=== PATIENT | male | born 1960 | race Caucasian/White ===

== ENCOUNTER 2016-09-30 18:29 | Inpatient (IN) | payer OTHER ==
[~2016-09-30] VITALS: Ht 167.6 cm; Wt 84.1 kg
[2016-09-30] MEDS ORDERED: SODIUM CHLORIDE 0.9% 1L BAG IV* STA (18:42)
[2016-09-30] MEDS ORDERED: morphine 4 MG/ML VIAL IV STA (18:42)
[2016-09-30] MEDS ORDERED: ONDANSETRON 4 MG INJ IV STA (18:42)
[2016-09-30] MEDS ORDERED: CEFEPIME 2GM/50 ML (PMX) 50 ML IVPB STA (18:42)
[2016-09-30] MEDS ORDERED: VANCOMYCIN 1 GM (PMX) 250 ML IVPB ONE (19:00)
[2016-09-30 19:12] LABS: BASOPHIL # 0.1 10^3/ul (0.0-0.1); BASOPHILS % 0.5 % (0.0-2.0); EOSINOPHILS # 0.1 10^3/ul (0.0-0.5); EOSINOPHILS % 0.7 % (0.0-7.0); HEMATOCRIT 47.6 % (42.0-52.0); HEMOGLOBIN 15.9 g/dl (14.0-18.0); LYMPHOCYTES # 1.8 10^3/ul (0.8-2.9); LYMPHOCYTES % 15.6 % (15.0-51.0); MEAN CORPUSCULAR HEMOGLOBIN 29.5 pg (29.0-33.0); MEAN CORPUSCULAR HGB CONC 33.4 g/dl (32.0-37.0); MEAN CORPUSCULAR VOLUME 88.2 fl (82.0-101.0); MONOCYTE # 0.7 10^3/ul (0.3-0.9); MONOCYTES % 5.6 % (0.0-11.0); NEUTROPHIL # 9.2 10^3/ul (1.6-7.5); NEUTROPHILS % 77.6 % (39.0-77.0); PLATELET COUNT 363 10^3/UL (140-440); RED CELL DISTRIBUTION WIDTH 13.6 % (11.5-14.5); UNCORRECTED WBC 11.8 10^3/ul (4.8-10.8); WHITE BLOOD COUNT 11.8 10^3/ul (4.8-10.8)
[2016-09-30 19:19] LABS: ALBUMIN 4.1 g/dl (3.3-4.9); CHLORIDE 104 mmol/L (97-110); SODIUM 146 mmol/L (135-144)
[2016-09-30 19:20] LABS: POTASSIUM 4.4 mmol/L (3.5-5.1)
[2016-09-30 19:22] LABS: ALANINE AMINOTRANSFERASE 52 IU/L (13-69); ALKALINE PHOSPHATASE 100 IU/L (42-121); ANION GAP 18 (8-16); ASPARTATE AMINO TRANSFERASE 101 IU/L (15-46); BILIRUBIN,INDIRECT 0.7 mg/dl (0-1.1); BILIRUBIN,TOTAL 0.7 mg/dl (0.2-1.3); BLOOD UREA NITROGEN 22 mg/dl (7-20); CALCIUM 9.3 mg/dl (8.4-10.2); CARBON DIOXIDE 28 mmol/L (21-31); CREATININE 1.12 mg/dl (0.61-1.24); GLUCOSE 112 mg/dl (70-220); TOTAL PROTEIN 7.5 g/dl (6.1-8.1)
[2016-09-30 19:24] LABS: PARTIAL THROMBOPLASTIN TIME 30.8 Sec (25.0-35.0)
[2016-09-30 19:29] LABS: CONDITION 1
[2016-09-30 19:32] LABS: INR 1.1; PROTIME 14.2 Sec (12.2-14.2); PT RATIO 1.1
--- NOTE | 2016-09-30 19:38 | RADRPT ---
PROCEDURE: CT Head without. CLINICAL INDICATION: Headache, possible sepsis. TECHNIQUE: The study was performed utilizing a multi-slice, multidetector CT scanner. Direct spira l 1 mm axial sections were obtained through the head without the use of intravenous contrast materia l. Coronal and sagittal reformations were obtained. The images were reviewed on a PACS workstation. RADIATION DOSE: CTDIvol: 44.9 mGyDLP: 720.2 mGy-cm COMPARISON: No prior studies are available for comparison. FINDINGS: There is no intracranial hemorrhage, extra-axial fluid collection, mass lesion, midline shift or hyd rocephalus. The ventricles, sulci and cisterns are within normal limits. The white matter is unrem arkable. The pemberton-white matter differentiation is preserved. The basal cisterns are patent. There is partial empty sella, normal variant. The midline structures are intact. The orbits, calvarium and extracranial soft tissues are normal in appearance. The visualized paranasal sinuses, mastoid ai r cells and middle ear cavities are normally aerated. IMPRESSION: 1. No acute intracranial abnormality. No intracranial hemorrhage, extra-axial fluid collection, ma ss lesion or hydrocephalous. RPTAT: HGAS .Sony Monroy MD, Date Time Electronically viewed and signed by .Sony Monroy MD, on 09/30/2016 19:37 .S/
--- NOTE | 2016-09-30 19:39 | RADRPT ---
PROCEDURE: CT Abdomen and Pelvis without contrast. CLINICAL INDICATION: Abdominal pain TECHNIQUE: CT of the abdomen and pelvis was performed on a multi-detector scanner without IV contr ast. Coronal and sagittal images were reformatted from the axial data set. One or more of the foll owing dose reduction techniques were used: automated exposure control, adjustment of the mA and/or kV according to patient size, use of iterative reconstruction technique. CTDI = 21.98 mGy. DLP = 12 40.4 mGy-cm. COMPARISON: None. FINDINGS: CT abdomen: The lung bases are clear. The heart size is normal, without pericardial effusion. Liver, gallbladd er, biliary tree, pancreas, spleen, adrenal glands and kidneys are unremarkable. No urolithiasis or obstructive uropathy is identified. The stomach is grossly unremarkable. The aorta is of normal caliber. Aortic vascular calcifications are present. There is no retroperit henderson lymphadenopathy. The cullen hepatis region is clear. Fat-containing umbilical hernia is ident ified, without incarceration. CT pelvis: Moderate retained fecal material is suggestive of constipation. There is no bowel obstruction, free intraperitoneal air or abscess. The appendix is well visualized and normal. No diverticulosis, di verticulitis or colitis is identified. Urinary bladder is unremarkable. No pelvic mass, free fluid or lymphadenopathy is identified. The surrounding osseous structures are remarkable for degenerative spondylosis of the spine. No ost eolytic or osteoblastic lesion is detected. IMPRESSION: 1. Moderate retained fecal material is suggestive of constipation. 2. Aortoiliac atherosclerotic calcifications are present. 3. Fat-containing umbilical hernia is noted, without incarceration. 4. No mass, lymphadenopathy, or focal acute inflammatory process is identified. RPTAT: QQ .Easton Kennedy MD, MD Date Time Electronically viewed and signed by .Easton Kennedy MD, MD on 09/30/2016 19:38 .R/
--- NOTE | 2016-09-30 19:39 | RADRPT ---
PROCEDURE: XR Chest. CLINICAL INDICATION: Sepsis TECHNIQUE: Single frontal chest x-ray. COMPARISON: None. FINDINGS: No acute infiltrate, pleural effusion or pneumothorax is identified. Cardiomediastinal silhouette i s within normal limits. The osseous structures are unremarkable. IMPRESSION: 1. Unremarkable chest x-ray. RPTAT: QQ .Easton Kennedy MD, MD Date Time Electronically viewed and signed by .Easton Kennedy MD, on 09/30/2016 19:39 .R/
[2016-09-30 19:43] LABS: TROPONIN-I < 0.012 ng/ml (0.00-0.12)
[2016-09-30 19:53] LABS: CREATINE KINASE 4413 IU/L (23-200)
--- NOTE | 2016-09-30 20:15 | ERA ---
ER Documentation Chief Complaint Date/Time DATE: 09/30/16 TIME: 20:12 Chief Complaint BLE pain, hx S1&L5 subluxation, hx laminectomy in 1990 HPI Patient is a 55-year-old male with hypertension who presents with lower extremity pain. He was brought in by ambulance. [facility] in a [facility] facility but he was refusing medicines and left AGAINST MEDICAL ADVICE. He is now living in a trailer by himself. The paramedics said the trailer was in bad condition and he was unable to ambulate in the trailer and was laying on the floor. The patient says that he fell out of bed last night and could not get up. He says "my legs have not been working for a while and I cannot walk". He said that he did have a [facility]. Upon review of old medical records the patient one previous visit to the ER in 2011. Review of the emergency department information exchange shows no visits to other local emergency departments. ROS All systems reviewed and are negative except as per history of present illness. Allergies Allergies: Coded Allergies: Codeine (Verified Allergy, NAUSEA,VOMITING, 10/23/11) PMhx/Soc History of Surgery: Yes (HEMILAMINECTOMY 1990) Anesthesia Reaction: No Hx Neurological Disorder: No Hx Respiratory Disorders: No Hx Cardiac Disorders: Yes (CHF,CT,HTN) Hx Psychiatric Problems: No Hx Miscellaneous Medical Probl: No Hx Alcohol Use: No Hx Substance Use: No Hx Tobacco Use: Yes (1 CIGARETTE A DAY) Smoking Status: Former smoker FmHx Family History: No diabetes Physical Exam Vitals Vital Signs Date Time Temp Pulse Resp B/P Pulse Ox O2 Delivery O2 Flow Rate FiO2 09/30/16 18:34 98.8 78 18 109/59 95 Physical Exam Const: Moderate distress Head: Atraumatic Eyes: Normal Conjunctiva ENT: Normal External Ears, Nose and Mouth. Neck: Full range of motion..~ No meningismus. Resp: Clear to auscultation bilaterally Cardio: Regular rate and rhythm, no murmurs Abd: Soft, non tender, non distended. Normal bowel sounds Skin: Erythema to the right abdomen with bruising possibly fall related an abrasion versus cellulitis Back: No midline or flank tenderness Ext: No cyanosis, or edema Neur: Awake and alert, weakness and spasm of the lower extremities bilaterally Psych: Normal Mood and Affect Result Diagram: 1/1/17 1900 09/30/16 1900 Results 24 hrs Laboratory Tests Test 09/30/16 19:00 Activated Partial Thromboplast Time 30.8Sec Alanine Aminotransferase (ALT/SGPT) 52IU/L Albumin 4.1g/dl Albumin/Globulin Ratio 1.20 Alkaline Phosphatase 100IU/L Anion Gap 18 Aspartate Amino Transf (AST/SGOT) 101IU/L Basophils # 0.110^3/ul Basophils % 0.5% Blood Urea Nitrogen 22mg/dl Calcium Level 9.3mg/dl Carbon Dioxide Level 28mmol/L Chloride Level 104mmol/L Creatine Kinase 4413IU/L Creatine Kinase Index 0.7 Creatinine 1.12mg/dl Creatinine Kinase MB (Mass) 28.90ng/ml Direct Bilirubin 0.00mg/dl Eosinophils # 0.110^3/ul Eosinophils % 0.7% Globulin 3.40g/dl Glucose Level 112mg/dl Hematocrit 47.6% Hemoglobin 15.9g/dl INR International Normalized Ratio 1.10 Indirect Bilirubin 0.7mg/dl Lactic Acid Level 2.0mmol/L Lymphocytes # 1.810^3/ul Lymphocytes % 15.6% Mean Corpuscular Hemoglobin 29.5pg Mean Corpuscular Hemoglobin Concent 33.4g/dl Mean Corpuscular Volume 88.2fl Mean Platelet Volume 9.0fl Monocytes # 0.710^3/ul Monocytes % 5.6% Neutrophils # 9.210^3/ul Neutrophils % 77.6% Nucleated Red Blood Cells # 0.010^3/ul Nucleated Red Blood Cells % 0.0/100WBC Platelet Count 80562^3/UL Potassium Level 4.4mmol/L Prothrombin Time 14.2Sec Prothrombin Time Ratio 1.1 Red Blood Count 5.4010^6/ul Red Cell Distribution Width 13.6% Sodium Level 146mmol/L Total Bilirubin 0.7mg/dl Total Protein 7.5g/dl Troponin I < 0.012ng/ml White Blood Count 11.810^3/ul Current Medications Medications (Trade) Dose Ordered Sig/Oli Route PRN Reason Start Time Stop Time Status Last Admin Dose Admin Sodium Chloride 2610 ml 2,610 ml BOLUS OVER 2 HOURS STAT IV* 09/30/16 18:42 09/30/16 18:44 DC 09/30/16 19:15 Cefepime HCl 50 ml @ 100 mls/hr ONCE STAT IVPB 09/30/16 18:42 09/30/16 19:11 DC 09/30/16 19:45 Vancomycin HCl (Vancocin) 250 ml @ 125 mls/hr ONCE ONCE IVPB 09/30/16 19:00 09/30/16 20:59 Morphine Sulfate (morphine) 4 mg ONCE STAT IV 09/30/16 18:42 09/30/16 18:44 DC 09/30/16 19:12 Ondansetron HCl (Zofran Inj) 4 mg ONCE STAT IV 09/30/16 18:42 09/30/16 18:44 DC 09/30/16 19:12 Ondansetron HCl (Zofran Inj) 4 mg BRIDGE ORDER PRN IV NAUSEA AND/OR VOMITING 09/30/16 20:30 10/01/16 20:29 Acetaminophen (Tylenol Tab) 650 mg ER BRIDGE PRN PO MILD PAIN/FEVER 09/30/16 20:30 10/01/16 20:29 Lorazepam (Ativan) 1 mg ONCE ONCE IV 09/30/16 20:30 09/30/16 20:31 Procedures/MDM Chest x-ray negative per radiology. CT brain negative per radiology. CT abdomen and pelvis negative for surgical process per radiology. Admit MDM: Patient's infectious symptoms have not stabilized and the patient is at risk of rapid decompensation. The patient will be admitted for careful hydration, antibiotic therapy, and infectious source control. Severe Sepsis criteria: Infectious source: Cellulitis End organ damage indicated by: Lactate greater than 2 Sepsis Management: Time of recognition of sepsis: 19:00 Within 3 hours of recognition: Blood cultures x 2 before broad-spectrum antibiotics: Yes 30 ml/kg NS bolus Completed Initial lactate 2.0 Repeat lactate pending Time of recognition of septic shock: No septic shock Septic Shock Assessment: Any lactic acid > 4.0 No Persistent hypotension (SBP < 90 or 40 mmHg drop, MAP < 65) despite 30 mL/kg IV fluid bolus No Volume Re-assessment for Septic Shock (post 30 ml/kg bolus): No septic shock at this time Persistent Hypotension Treatment: Comfort care No Central line Not Required Vasopressor started Not required I considered further perfusion assessment with CVP measurement, SCVO2, bedside ultrasound volume assessment, passive leg raise, trial of further fluid bolus. And proceeded with 30 ml/kg fluid bolus of NSS, broad spectrum antibiotics, and admission. The patient was also found to have rhabdomyolysis with a CK of greater than 4000. The patient will be rehydrated with fluid boluses. The patient will be admitted to medical surgical bed. The rhabdomyolysis is most likely from prolonged exposure to laying on the ground and muscle breakdown. Accepting Care Team Current data and ongoing care discussed. Admitting Physician: Dr. Raphael as the patient has [employer] IPA Pl[employer] Fabricator(s): None Outstanding Data: Culture results and repeat lactic acid Critical Care: Critical care time 35 minutes excluding all billable procedures Emergent fluid management while maintaining close respiratory support. Provision of immediate and broad-spectrum antibiotic therapy. Simultaneous assessment for possible sources in order to direct targeted therapy. Consideration for invasive and chemical support to prevent cardiopulmonary collapse. Departure Diagnosis: Primary Impression: Rhabdomyolysis Qualified Code: M62.82 - Non-traumatic rhabdomyolysis Additional Impressions: Ambulatory dysfunction Severe sepsis Cellulitis Qualified Code: L03.311 - Cellulitis of abdominal wall Condition: BETSY Tse MD Sep 30, 2016 20:15
[2016-09-30] MEDS ORDERED: LORAZEPAM 2 MG INJ IV ONE (20:30)
[2016-09-30] MEDS ORDERED: ACETAMINOPHEN 325 MG TAB PO PRN (20:30)
[2016-09-30] MEDS ORDERED: ONDANSETRON 4 MG INJ IV PRN ×2 (20:30→22:00)
[2016-09-30 21:00] VITALS: TEMP 98.8
--- NOTE | 2016-09-30 21:48 | HP ---
Date/Time of Note Date/Time of Note DATE: 09/30/16 TIME: 21:39 Assessment/Plan VTE Prophylaxis VTE Prophylaxis Intervention: LMWH Assessment/Plan Assessment/Plan 1. Acute rhabdomyolysis 2. s/p fall 3. HTN 4. CAD + Prev MT 5. Chronic back pain 6. Hypernatremia PLAN: admit / aggressive IV hydration / serial lab monitoring ACS r/o /2D echo/ aspirin/ lipid profile pain control/ antiemetics/ antipyretics/ supportive care Prophylaxis: Lovenox / pepcid Further evaluation and treatment will be based on clinical course Full discussion with care team done. All questions Answered Please also see orders. Total time spent on this evaluation >35mins HPI/ROS Admit Date/Time Admit Date/Time 09/30/15 Hx of Present Illness PRESENTING COMPLAINT: can't walk, Ja LE pain HISTORY OF PRESENTING COMPLAINT: 55 yo M BIBA, with a hx of HTN. He was recently in a prison facility but he was refusing medicines and left AGAINST MEDICAL ADVICE. He is now living in a trailer by himself. The paramedics said the trailer was in bad condition and he was unable to ambulate in the trailer and was laying on the floor. The patient says that he fell out of bed last night and could not get up. He says "my legs have not been working for a while and I cannot walk". ROS Constitutional: fatigue, No chills, No febrile Eyes: no complaints ENT: no complaints Respiratory: no complaints Cardiovascular: no complaints Gastrointestinal: no complaints Musculoskeletal: back pain, bone/joint pain, other (fall) Neurologic: No confusion, No dizziness, No focal-weakness, No headache, No seizure, No syncope PMH/Family/Social Past Medical History * S1 & L5 subluxation and laminectomy in 1990 * CHF * CAD s/p MT * HTN Family History Significant Family History: hypertension Social History Alcohol Use: occasionally Smoking Status: Light tobacco smoker Drug Use: none Exam/Review of Systems Vital Signs Vitals Vital Signs Date Time Temp Pulse Resp B/P Pulse Ox O2 Delivery O2 Flow Rate FiO2 09/30/16 21:00 98.8 79 18 103/66 95 Room Air Labs Result Diagram: 09/30/16 1900 09/30/16 190 Procedures Procedures Laboratory Tests Test 09/30/16 19:00 Activated Partial Thromboplast Time 30.8Sec Alanine Aminotransferase (ALT/SGPT) 52IU/L Albumin 4.1g/dl Albumin/Globulin Ratio 1.20 Alkaline Phosphatase 100IU/L Anion Gap 18 Aspartate Amino Transf (AST/SGOT) 101IU/L Basophils # 0.110^3/ul Basophils % 0.5% Blood Urea Nitrogen 22mg/dl Calcium Level 9.3mg/dl Carbon Dioxide Level 28mmol/L Chloride Level 104mmol/L Creatine Kinase 4413IU/L Creatine Kinase Index 0.7 Creatinine 1.12mg/dl Creatinine Kinase MB (Mass) 28.90ng/ml Direct Bilirubin 0.00mg/dl Eosinophils # 0.110^3/ul Eosinophils % 0.7% Globulin 3.40g/dl Glucose Level 112mg/dl Hematocrit 47.6% Hemoglobin 15.9g/dl INR International Normalized Ratio 1.10 Indirect Bilirubin 0.7mg/dl Lactic Acid Level 2.0mmol/L Lymphocytes # 1.810^3/ul Lymphocytes % 15.6% Mean Corpuscular Hemoglobin 29.5pg Mean Corpuscular Hemoglobin Concent 33.4g/dl Mean Corpuscular Volume 88.2fl Mean Platelet Volume 9.0fl Monocytes # 0.710^3/ul Monocytes % 5.6% Neutrophils # 9.210^3/ul Neutrophils % 77.6% Nucleated Red Blood Cells # 0.010^3/ul Nucleated Red Blood Cells % 0.0/100WBC Platelet Count 12853^3/UL Potassium Level 4.4mmol/L Prothrombin Time 14.2Sec Prothrombin Time Ratio 1.1 Red Blood Count 5.4010^6/ul Red Cell Distribution Width 13.6% Sodium Level 146mmol/L Total Bilirubin 0.7mg/dl Total Protein 7.5g/dl Troponin I < 0.012ng/ml White Blood Count 11.810^3/ul ER INTERVENTIONS Medications (Trade) Dose Ordered Sig/Oli Route PRN Reason Start Time Stop Time Status Last Admin Dose Admin Sodium Chloride 2610 ml 2,610 ml BOLUS OVER 2 HOURS STAT IV* 09/30/16 18:42 09/30/16 18:44 DC 09/30/16 19:15 2,610 ML Cefepime HCl 50 ml @ 100 mls/hr ONCE STAT IVPB 09/30/16 18:42 09/30/16 19:11 DC 09/30/16 19:45 100 MLS/HR Vancomycin HCl (Vancocin) 250 ml @ 125 mls/hr ONCE ONCE IVPB 09/30/16 19:00 09/30/16 20:59 DC 09/30/16 20:18 125 MLS/HR Morphine Sulfate (morphine) 4 mg ONCE STAT IV 09/30/16 18:42 09/30/16 18:44 DC 09/30/16 19:12 4 MG Ondansetron HCl (Zofran Inj) 4 mg ONCE STAT IV 09/30/16 18:42 09/30/16 18:44 DC 09/30/16 19:12 4 MG Ondansetron HCl (Zofran Inj) 4 mg BRIDGE ORDER PRN IV NAUSEA AND/OR VOMITING 09/30/16 20:30 10/01/16 20:29 Acetaminophen (Tylenol Tab) 650 mg ER BRIDGE PRN PO MILD PAIN/FEVER 09/30/16 20:30 10/01/16 20:29 Lorazepam (Ativan) 1 mg ONCE ONCE IV 09/30/16 20:30 09/30/16 20:31 DC 09/30/16 20:12 1 MG PROCEDURE: CT Abdomen and Pelvis without contrast. CLINICAL INDICATION: Abdominal pain TECHNIQUE: CT of the abdomen and pelvis was performed on a multi-detector scanner without IV contrast. Coronal and sagittal images were reformatted from the axial data set. One or more of the following dose reduction techniques were used: automated exposure control, adjustment of the mA and/or kV according to patient size, use of iterative reconstruction technique. CTDI = 21.98 mGy. DLP = 1240.4 mGy-cm. COMPARISON: None. FINDINGS: CT abdomen: The lung bases are clear. The heart size is normal, without pericardial effusion. Liver, gallbladder, biliary tree, pancreas, spleen, adrenal glands and kidneys are unremarkable. No urolithiasis or obstructive uropathy is identified. The stomach is grossly unremarkable. The aorta is of normal caliber. Aortic vascular calcifications are present. There is no retroperitoneal lymphadenopathy. The cullen hepatis region is clear. Fat-containing umbilical hernia is identified, without incarceration. CT pelvis: Moderate retained fecal material is suggestive of constipation. There is no bowel obstruction, free intraperitoneal air or abscess. The appendix is well visualized and normal. No diverticulosis, diverticulitis or colitis is identified. Urinary bladder is unremarkable. No pelvic mass, free fluid or lymphadenopathy is identified. The surrounding osseous structures are remarkable for degenerative spondylosis of the spine. No osteolytic or osteoblastic lesion is detected. IMPRESSION: 1. Moderate retained fecal material is suggestive of constipation. 2. Aortoiliac atherosclerotic calcifications are present. 3. Fat-containing umbilical hernia is noted, without incarceration. 4. No mass, lymphadenopathy, or focal acute inflammatory process is identified. RPTAT: QQ .Easton Kennedy MD MD Date Time Electronically viewed and signed by .Easton Kennedy MD, MD on 09/30/2016 19: 38 PROCEDURE: CT Head without. CLINICAL INDICATION: Headache, possible sepsis. TECHNIQUE: The study was performed utilizing a multi-slice, multidetector CT scanner. Direct spiral 1 mm axial sections were obtained through the head without the use of intravenous contrast material. Coronal and sagittal reformations were obtained. The images were reviewed on a PACS workstation. RADIATION DOSE: CTDIvol: 44.9 mGy DLP: 720.2 mGy-cm COMPARISON: No prior studies are available for comparison. FINDINGS: There is no intracranial hemorrhage, extra-axial fluid collection, mass lesion, midline shift or hydrocephalus. The ventricles, sulci and cisterns are within normal limits. The white matter is unremarkable. The pemberton-white matter differentiation is preserved. The basal cisterns are patent. There is partial empty sella, normal variant. The midline structures are intact. The orbits, calvarium and extracranial soft tissues are normal in appearance. The visualized paranasal sinuses, mastoid air cells and middle ear cavities are normally aerated. IMPRESSION: 1. No acute intracranial abnormality. No intracranial hemorrhage, extra-axial fluid collection, mass lesion or hydrocephalous. RPTAT: HGAS .Sony Monroy MD, MD Date Time Electronically viewed and signed by .Sony Monroy MD, on 09/30/2016 19: 37 .S/ PROCEDURE: XR Chest. CLINICAL INDICATION: Sepsis TECHNIQUE: Single frontal chest x-ray. COMPARISON: None. FINDINGS: No acute infiltrate, pleural effusion or pneumothorax is identified. Cardiomediastinal silhouette is within normal limits. The osseous structures are unremarkable. IMPRESSION: 1. Unremarkable chest x-ray. RPTAT: QQ .Easton Kennedy MD, MD Date Time Electronically viewed and signed by .Easton Kennedy MD, MD on 09/30/2016 19: 39 I reviewed EKG Rate: Within normal limits Rhythm: sinus Note: No ST elevation or depressions noted concerning for acute ischemic event. MICHELE BASSETT Sep 30, 2016 21:48
[2016-09-30] MEDS ORDERED: BISACODYL (EC) 5 MG TAB PO ONE (22:00)
[2016-09-30 22:10] VITALS: BP 112/60; PULSE 93; RESP 18
[2016-09-30] MEDS: HYDROCODONE/APAP (5/325) TAB PO PRN (23:22)
[2016-09-30] MEDS: SOD CHLORIDE 0.45% 1,000 ML IV SCH (23:51)
[2016-10-01 00:26] LABS: CREATINE KINASE 3020 IU/L (23-200); TROPONIN-I < 0.012 ng/ml (0.00-0.12)
[2016-10-01] MEDS: SOD CHLORIDE 0.45% 1,000 ML IV SCH ×4 (04:40→21:15)
[2016-10-01 06:20] LABS: ALBUMIN 3.1 g/dl (3.3-4.9)
[2016-10-01 06:21] LABS: POTASSIUM 4.3 mmol/L (3.5-5.1)
[2016-10-01 06:23] LABS: ALBUMIN/GLOBULIN RATIO 1.06; BILIRUBIN,INDIRECT 0.4 mg/dl (0-1.1); BILIRUBIN,TOTAL 0.4 mg/dl (0.2-1.3); CREATININE 1.14 mg/dl (0.61-1.24)
[2016-10-01 06:24] LABS: CALCIUM 8.2 mg/dl (8.4-10.2); CHOL/HDL RATIO 5.2 RATIO
[2016-10-01 06:54] LABS: THYROID STIMULATING HORMONE 0.907 MIU/L (0.465-4.680)
[2016-10-01 07:20] LABS: CREATINE KINASE 2645 IU/L (23-200)
[2016-10-01 07:27] LABS: TROPONIN-I < 0.012 ng/ml (0.00-0.12)
[2016-10-01 07:42] VITALS: BP 165/75; RESP 18
[2016-10-01] MEDS: FAMOTIDINE 20 MG TAB PO SCH ×2 (08:59→21:07)
[2016-10-01 10:24] VITALS: BP 95/54; PULSE 87; RESP 18
[2016-10-01] MEDS ORDERED: ACETAMINOPHEN 325 MG TAB ONE (11:03)
[2016-10-01] MEDS: ACETAMINOPHEN 325 MG TAB PO PRN ×2 (11:06→18:12)
--- NOTE | 2016-10-01 12:18 | PN ---
Date/Time of Note Date/Time of Note DATE: 10/01/16 TIME: 12:15 Assessment/Plan VTE Prophylaxis VTE Prophylaxis Intervention: heparin Lines/Catheters IV Catheter Type (from Nrsg): Peripheral IV Urinary Cath still in place: No Assessment/Plan Assessment/Plan 1. Acute rhabdomyolysis 2. s/p fall 3. HTN 4. CAD + Prev MT 5. Chronic back pain 6. Hypernatremia PLAN: Cont aggressive IV hydration / serial lab monitoring ACS r/o /2D echo/ aspirin/ lipid profile pain control/ antiemetics/ antipyretics/ supportive care Prophylaxis: Lovenox / pepcid Subjective 24 Hr Interval Summary Free Text/Dictation c/o generalized body pain Exam/Review of Systems Vital Signs Vitals Vital Signs Date Time Temp Pulse Resp B/P Pulse Ox O2 Delivery O2 Flow Rate FiO2 10/01/16 10:24 87 18 95/54 10/01/16 07:42 98.8 95 09/30/16 21:00 Room Air Intake and Output 09/30/16 09/30/16 10/01/16 15:00 23:00 07:00 Intake Total 250 ml 1600 ml Balance 250 ml 1600 ml Exam Constitutional: alert, oriented, well developed Head: atraumatic, normocephalic Respiratory: clear to auscultation, normal air movement Cardiovascular: nl pulses, regular rate and rhythm Gastrointestinal: soft Extremities: normal pulses Results Result Diagram: 09/30/16 1900 10/01/16 0428 Results 24 hrs Laboratory Tests Test 09/30/16 19:00 09/30/16 21:35 09/30/16 23:43 10/01/16 04:28 Activated Partial Thromboplast Time 30.8 Alanine Aminotransferase (ALT/SGPT) 52 51 Albumin 4.1 3.1 #L Albumin/Globulin Ratio 1.20 1.06 Alkaline Phosphatase 100 77 Anion Gap 18 H 15 Aspartate Amino Transf (AST/SGOT) 101 H 84 H Basophils # 0.1 Basophils % 0.5 Blood Urea Nitrogen 22 H 24 H Calcium Level 9.3 8.2 L Carbon Dioxide Level 28 21 Chloride Level 104 109 Creatine Kinase 4413 H 3020 H 2645 H Creatine Kinase Index 0.7 0.6 0.5 Creatinine 1.12 1.14 Creatinine Kinase MB (Mass) 28.90 H 16.90 H 13.00 H Direct Bilirubin 0.00 0.00 Eosinophils # 0.1 Eosinophils % 0.7 Globulin 3.40 H 2.90 Glucose Level 112 86 Hematocrit 47.6 Hemoglobin 15.9 INR International Normalized Ratio 1.10 Indirect Bilirubin 0.7 0.4 Lactic Acid Level 2.0 1.4 1.1 Lymphocytes # 1.8 Lymphocytes % 15.6 Mean Corpuscular Hemoglobin 29.5 Mean Corpuscular Hemoglobin Concent 33.4 Mean Corpuscular Volume 88.2 Mean Platelet Volume 9.0 Monocytes # 0.7 Monocytes % 5.6 Neutrophils # 9.2 H Neutrophils % 77.6 H Nucleated Red Blood Cells # 0.0 Nucleated Red Blood Cells % 0.0 Platelet Count 363 Potassium Level 4.4 4.3 Prothrombin Time 14.2 Prothrombin Time Ratio 1.1 Red Blood Count 5.40 Red Cell Distribution Width 13.6 Sodium Level 146 H 141 Total Bilirubin 0.7 0.4 Total Protein 7.5 6.0 #L Troponin I < 0.012 < 0.012 < 0.012 White Blood Count 11.8 H Cholesterol Level 131 Cholesterol/HDL Ratio 5.2 HDL Cholesterol 25 L LDL Cholesterol, Calculated 84 Magnesium Level 2.0 Thyroid Stimulating Hormone (TSH) 0.907 Triglycerides Level 111 Medications Medications Current Medications Sodium Chloride (1/2 NS) 1,000 ml @ 150 mls/hr Q6H40M IV Last administered on 10/01/16 06:53; Admin Dose 150 MLS/HR; Start 09/30/16 at 22:00 Acetaminophen/ Hydrocodone Bitart ([place] (5/325)) 1 tab Q6H PRN PO pain Last administered on 09/30/16 23:22; Admin Dose 1 TAB; Start 09/30/16 at 22:00 Senna/Docusate Sodium (Senokot-S) 2 tab QHS PO ; Start 10/01/16 at 21:00 Famotidine (Pepcid) 20 mg BID PO Last administered on 10/01/16 08:59; Admin Dose 20 MG; Start 10/01/16 at 09:00 Ondansetron HCl (Zofran Inj) 4 mg Q6H PRN IV NAUSEA AND/OR VOMITING; Start 09/30 at 22:00 Influenza Virus Vaccine (Fluzone) 0.5 ml ONCE ONCE IM* ; Start 10/02/16 at 09:00 ; Stop 10/02/16 at 09:01 Acetaminophen (Tylenol Tab) 650 mg Q6H PRN PO PAIN AND OR ELEVATED TEMP Last administered on 10/01/16t 11:06; Admin Dose 650 MG; Start 10/01/16 at 11:00 SHINE GERMAIN MD Oct 01, 2016 12:18
[2016-10-01] MEDS: HYDROCODONE/APAP (5/325) TAB PO PRN ×2 (13:05→19:33)
[2016-10-01 13:45] LABS: ADD UMIC NO; URINE BILIRUBIN (Dip) NEGATIVE (NEGATIVE); URINE BLOOD (Dip) NEGATIVE (NEGATIVE); URINE COLOR LT. YELLOW (YELLOW); URINE GLUCOSE (Dip) NEGATIVE (NEGATIVE); URINE KETONES (Dip) NEGATIVE (NEGATIVE); URINE LEUKOCYTE ESTERASE (Dip) NEGATIVE (NEGATIVE); URINE NITRITE (Dip) NEGATIVE (NEGATIVE); URINE TOTAL PROTEIN (Dip) NEGATIVE (NEGATIVE); URINE UROBILINOGEN (Dip) 0.2 E.U./dL (0.1-1.0)
[2016-10-01 15:56] LABS: BARBITURATES NEGATIVE (NEGATIVE); BENZODIAZEPINES NEGATIVE (NEGATIVE); CANNABINOIDS NEGATIVE (NEGATIVE); COCAINE NEGATIVE (NEGATIVE); OPIATES POSITIVE (NEGATIVE)
[2016-10-01 20:00] VITALS: BP 116/64; PULSE 75; RESP 20
[2016-10-01 20:31] VITALS: BP 116/64; RESP 20
[2016-10-01] MEDS: SENNA/DOCUSATE NA (8.6MG/50MG) TAB PO SCH (21:07)
[2016-10-01] MEDS: HEPARIN 5,000 UNIT/0.5 ML SYG SC SCH (21:12)
--- NOTE | 2016-10-01 21:53 | RADRPT ---
Echocardiogram Report Patient Name: LUTHER SAM Gender: Male Date: 1960 Study Date: 01-Oct-2016 Child Development Specialist: Lupillo Bustos RDCS Location: 420 Ref. Physician: MICHELE BASSETT Quality: Technically Difficult Study Procedures: Transthoracic echocardiogram with complete 2D, M-Mode, and doppler examination. Indications: Evaluate Left Ventricular function. 2D/M Mode Doppler Measurement Value Normal Ranges Measurement Value Normal Ranges LVIDd 2D 4.5 3.5 - 5.6 cm AV Peak [place] 1.1 m/sec LVIDs 2D 2.8 2.1 - 4.1 cm AV Peak PG 4.8 mmHg LVPWd 2D 0.9 0.6 - 1.1 cm LVOT Peak [place] 1.0 m/sec IVSd 2D 0.8 0.6 - 1.1 cm LVOT Peak PG 4.0 mmHg AoR Diam 2D 2.9 2.0 - 3.7 cm MV E Peak [place]do 0.7 m/sec EDV 2D 90.6 cm3 MV A Peak [place] 0.8 m/sec ESV 2D 21.7 cm3 MV E/A 0.9 LA Dimen 2D 2.8 2.3 - 4.0 cm MV Decel Time 136 msec MV Decel [place] 5 MV E/A 0.9 Findings Left Ventricle: Normal left ventricular systolic function. Normal left ventricular cavity size. Normal left ventricular wall thickness. Ejection fraction is visually estimated at 65 %. Tissue Doppler/Mitral Doppler indices are consistent with impaired relaxation (Stage I diastolic dysfunction). Right Ventricle: Normal right ventricular size. Normal right ventricular systolic function. Left Atrium: The left atrium is normal in size. Right Atrium: The right atrium is normal in size. Mitral Valve: Normal appearance and function of the mitral valve with trace physiologic regurgitation. Aortic Valve: Normal appearance of the aortic valve. No significant aortic stenosis or insufficiency. Tricuspid Valve: Normal appearance and function of the tricuspid valve with trace physiologic regurgitation. Pericardium: Normal pericardium with no significant pericardial effusion. Aorta: Normal aortic root. IVC: Normal size and normal respiratory collapse consistent with normal right atrial pressure. Conclusions Normal left ventricular systolic function. Normal left ventricular cavity size. Normal left ventricular wall thickness. Ejection fraction is visually estimated at 65 %. Tissue Doppler/Mitral Doppler indices are consistent with impaired relaxation (Stage I diastolic dysfunction). Normal right ventricular size. Normal right ventricular systolic function. The left atrium is normal in size. The right atrium is normal in size. No significant valvular stenosis or regurgitation seen. Normal pericardium with no significant pericardial effusion. Electronically Signed By: Tommie Richey 01-Oct-2016 21:52:11 -0800 Patient Name: LUTHER SAM Study Date: 01-Oct-[id number]
[2016-10-01] MEDS: BACLOFEN 10 MG TAB PO PRN (23:42)
[2016-10-02] MEDS: morphine 4 MG/ML VIAL IV PRN ×7 (00:01→23:36)
[2016-10-02] MEDS: SOD CHLORIDE 0.45% 1,000 ML IV SCH ×4 (00:40→13:10)
[2016-10-02] MEDS: HYDROCODONE/APAP (5/325) TAB PO PRN ×2 (04:11→19:48)
[2016-10-02 05:19] LABS: BASOPHIL # 0.1 10^3/ul (0.0-0.1); BASOPHILS % 0.7 % (0.0-2.0); EOSINOPHILS # 0.3 10^3/ul (0.0-0.5); EOSINOPHILS % 3.4 % (0.0-7.0); HEMATOCRIT 40.2 % (42.0-52.0); HEMOGLOBIN 13.5 g/dl (14.0-18.0); LYMPHOCYTES % 33.6 % (15.0-51.0); MEAN CORPUSCULAR HEMOGLOBIN 29.7 pg (29.0-33.0); MEAN CORPUSCULAR HGB CONC 33.7 g/dl (32.0-37.0); MEAN CORPUSCULAR VOLUME 88.2 fl (82.0-101.0); MEAN PLATELET VOLUME 9.4 fl (7.4-10.4); MONOCYTE # 0.7 10^3/ul (0.3-0.9); MONOCYTES % 7.6 % (0.0-11.0); NEUTROPHIL # 4.9 10^3/ul (1.6-7.5); NEUTROPHILS % 54.7 % (39.0-77.0); PLATELET COUNT 335 10^3/UL (140-440); RED BLOOD COUNT 4.56 10^6/ul (4.70-6.10); RED CELL DISTRIBUTION WIDTH 13.4 % (11.5-14.5)
[2016-10-02 05:27] LABS: CONDITION 1
[2016-10-02 05:33] LABS: ALBUMIN 3.3 g/dl (3.3-4.9); POTASSIUM 4.5 mmol/L (3.5-5.1)
[2016-10-02 05:35] LABS: BILIRUBIN,INDIRECT 0.3 mg/dl (0-1.1); BILIRUBIN,TOTAL 0.3 mg/dl (0.2-1.3); CREATININE 1.04 mg/dl (0.61-1.24)
[2016-10-02 05:36] LABS: ALBUMIN/GLOBULIN RATIO 1.13; CALCIUM 8.7 mg/dl (8.4-10.2); TOTAL PROTEIN 6.2 g/dl (6.1-8.1)
[2016-10-02 08:17] VITALS: BP 161/98; RESP 18
[2016-10-02] MEDS ORDERED: INFLUENZA VIRUS VACCINE 0.5 ML (DISPENSING) IM* ONE (09:00)
[2016-10-02] MEDS: FAMOTIDINE 20 MG TAB PO SCH ×2 (09:28→19:48)
[2016-10-02] MEDS: HEPARIN 5,000 UNIT/0.5 ML SYG SC SCH ×2 (09:37→20:47)
--- NOTE | 2016-10-02 19:38 | PN ---
Date/Time of Note Date/Time of Note DATE: 10/02/16 TIME: 19:38 Assessment/Plan VTE Prophylaxis VTE Prophylaxis Intervention: heparin Lines/Catheters IV Catheter Type (from Nrsg): Peripheral IV Urinary Cath still in place: No Assessment/Plan Assessment/Plan 1. Acute rhabdomyolysis 2. s/p fall 3. HTN 4. CAD + Prev [place] 5. Chronic back pain 6. Hypernatremia PLAN: Cont aggressive IV hydration / serial lab monitoring ACS r/o /2D echo/ aspirin/ lipid profile pain control/ antiemetics/ antipyretics/ supportive care Prophylaxis: Lovenox / pepcid Subjective 24 Hr Interval Summary Free Text/Dictation c/o generalized pain Exam/Review of Systems Vital Signs Vitals Vital Signs Date Time Temp Pulse Resp B/P Pulse Ox O2 Delivery O2 Flow Rate FiO2 10/02/16 08:17 98.3 72 18 161/98 96 10/01/16 20:00 Room Air 10/01/16 20:00 2.0 Intake and Output 10/01/16 10/01/16 10/02/16 15:00 23:00 07:00 Intake Total 1000 ml 950 ml 2180 ml Output Total 2100 ml Balance 1000 ml 950 ml 80 ml Exam Constitutional: alert, oriented, well developed Head: atraumatic, normocephalic Respiratory: clear to auscultation, normal air movement Cardiovascular: nl pulses, regular rate and rhythm Gastrointestinal: soft Extremities: normal pulses Results Result Diagram: 10/02/16 0422 10/02/16 0422 Results 24 hrs Laboratory Tests Test 10/02/16 04:22 Alanine Aminotransferase (ALT/SGPT) 51 Albumin 3.3 Albumin/Globulin Ratio 1.13 Alkaline Phosphatase 76 Anion Gap 16 Aspartate Amino Transf (AST/SGOT) 74 H Basophils # 0.1 Basophils % 0.7 Blood Urea Nitrogen 18 Calcium Level 8.7 Carbon Dioxide Level 24 Chloride Level 108 Creatinine 1.04 Direct Bilirubin 0.00 Eosinophils # 0.3 Eosinophils % 3.4 Globulin 2.90 Glucose Level 81 Hematocrit 40.2 L Hemoglobin 13.5 L Indirect Bilirubin 0.3 Lymphocytes # 3.0 H Lymphocytes % 33.6 Mean Corpuscular Hemoglobin 29.7 Mean Corpuscular Hemoglobin Concent 33.7 Mean Corpuscular Volume 88.2 Mean Platelet Volume 9.4 Monocytes # 0.7 Monocytes % 7.6 Neutrophils # 4.9 Neutrophils % 54.7 Nucleated Red Blood Cells # 0.0 Nucleated Red Blood Cells % 0.0 Platelet Count 335 Potassium Level 4.5 Red Blood Count 4.56 L Red Cell Distribution Width 13.4 Sodium Level 143 Total Bilirubin 0.3 Total Protein 6.2 White Blood Count 9.0 # Medications Medications Current Medications Sodium Chloride (1/2 NS) 1,000 ml @ 150 mls/hr Q6H40M IV Last administered on 10/02/16 13:10; Admin Dose 150 MLS/HR; Start 09/30/16 at 22:00 Acetaminophen/ Hydrocodone Bitart ([place] (5/325)) 1 tab Q6H PRN PO pain Last administered on 10/02/16 04:11; Admin Dose 1 TAB; Start 09/30/16 at 22:00 Senna/Docusate Sodium (Senokot-S) 2 tab QHS PO Last administered on 10/01/16 21 :07; Admin Dose 2 TAB; Start 10/01/16 at 21:00 Famotidine (Pepcid) 20 mg BID PO Last administered on 10/02/16 09:28; Admin Dose 20 MG; Start 10/01/16 at 09:00 Ondansetron HCl (Zofran Inj) 4 mg Q6H PRN IV NAUSEA AND/OR VOMITING; Start 09/30 at 22:00 Acetaminophen (Tylenol Tab) 650 mg Q6H PRN PO PAIN AND OR ELEVATED TEMP Last administered on 10/01/16 18:12; Admin Dose 650 MG; Start 10/01/16 at 11:00 Bisacodyl (Dulcolax) 10 mg DAILY PRN PO CONSTIPATION; Start 10/01/16 at 12:30 Heparin Sodium (Porcine) (Heparin (5000 Units/0.5 ml)) 5,000 unit BID SC Last administered on 10/02/16 09:37; Admin Dose 5,000 UNIT; Start 10/01/16 at 21:00 Baclofen (Lioresal) 10 mg Q8 PRN PO PAIN Last administered on 10/01/16 23:42; Admin Dose 10 MG; Start 10/01/16 at 22:30 Morphine Sulfate (morphine) 4 mg Q3H PRN IV PAIN Last administered on 10/02/16 17:00; Admin Dose 4 MG; Start 10/02/16 at 00:00 SHINE GERMAIN MD Oct 02, 2016 19:38
[2016-10-02] MEDS: SENNA/DOCUSATE NA (8.6MG/50MG) TAB PO SCH (19:48)
[2016-10-02] MEDS: BACLOFEN 10 MG TAB PO PRN (19:48)
[2016-10-02 20:10] VITALS: BP 121/57; PULSE 84; RESP 18
[2016-10-03] MEDS: SOD CHLORIDE 0.45% 1,000 ML IV SCH ×5 (03:20→23:21)
[2016-10-03] MEDS: morphine 4 MG/ML VIAL IV PRN ×6 (04:10→23:22)
[2016-10-03 05:43] LABS: BASOPHILS % 0.5 % (0.0-2.0); EOSINOPHILS # 0.3 10^3/ul (0.0-0.5); EOSINOPHILS % 3.2 % (0.0-7.0); HEMATOCRIT 38.5 % (42.0-52.0); HEMOGLOBIN 13.2 g/dl (14.0-18.0); LYMPHOCYTES # 2.5 10^3/ul (0.8-2.9); LYMPHOCYTES % 28.9 % (15.0-51.0); MEAN CORPUSCULAR HEMOGLOBIN 29.9 pg (29.0-33.0); MEAN CORPUSCULAR HGB CONC 34.3 g/dl (32.0-37.0); MEAN CORPUSCULAR VOLUME 87.1 fl (82.0-101.0); MEAN PLATELET VOLUME 9.7 fl (7.4-10.4); MONOCYTE # 0.7 10^3/ul (0.3-0.9); MONOCYTES % 8.6 % (0.0-11.0); NEUTROPHIL # 5.1 10^3/ul (1.6-7.5); NEUTROPHILS % 58.8 % (39.0-77.0); PLATELET COUNT 303 10^3/UL (140-440); RED BLOOD COUNT 4.42 10^6/ul (4.70-6.10); RED CELL DISTRIBUTION WIDTH 13.3 % (11.5-14.5); UNCORRECTED WBC 8.7 10^3/ul (4.8-10.8); WHITE BLOOD COUNT 8.7 10^3/ul (4.8-10.8)
[2016-10-03 05:45] LABS: ALBUMIN 3.1 g/dl (3.3-4.9); CONDITION 1
[2016-10-03] MEDS: BACLOFEN 10 MG TAB PO PRN ×2 (05:46→21:11)
[2016-10-03] MEDS: HYDROCODONE/APAP (5/325) TAB PO PRN ×2 (05:46→19:42)
[2016-10-03 05:47] LABS: BILIRUBIN,INDIRECT 0.2 mg/dl (0-1.1); BILIRUBIN,TOTAL 0.2 mg/dl (0.2-1.3); CREATININE 0.97 mg/dl (0.61-1.24)
[2016-10-03 05:48] LABS: ALBUMIN/GLOBULIN RATIO 1.1; TOTAL PROTEIN 5.9 g/dl (6.1-8.1)
[2016-10-03 05:49] LABS: CALCIUM 8.2 mg/dl (8.4-10.2)
[2016-10-03 07:40] VITALS: BP 109/54; RESP 19
[2016-10-03] MEDS: FAMOTIDINE 20 MG TAB PO SCH ×2 (08:48→20:11)
[2016-10-03] MEDS: HEPARIN 5,000 UNIT/0.5 ML SYG SC SCH ×2 (08:55→20:22)
--- NOTE | 2016-10-03 19:19 | PN ---
Date/Time of Note Date/Time of Note DATE: 10/03/16 TIME: 19:18 Assessment/Plan VTE Prophylaxis VTE Prophylaxis Intervention: SCD's Lines/Catheters IV Catheter Type (from Nrsg): Peripheral IV Urinary Cath still in place: No Assessment/Plan Assessment/Plan 1. Acute rhabdomyolysis 2. s/p fall 3. HTN 4. CAD + Prev [place] 5. Chronic back pain 6. Hypernatremia PLAN: Cont aggressive IV hydration / serial lab monitoring ACS r/o /2D echo/ aspirin/ lipid profile pain control/ antiemetics/ antipyretics/ supportive care Prophylaxis: Lovenox / pepcid Exam/Review of Systems Vital Signs Vitals Vital Signs Date Time Temp Pulse Resp B/P Pulse Ox O2 Delivery O2 Flow Rate FiO2 10/03/16 07:40 98.0 74 19 109/54 99 10/02/16 20:10 Room Air 10/01/16 20:00 2.0 Intake and Output 10/02/16 10/02/16 10/03/16 15:00 23:00 07:00 Intake Total 2250 ml 250 ml Output Total 1400 ml 300 ml Balance 850 ml -50 ml Exam Constitutional: alert, oriented, well developed Head: atraumatic, normocephalic Respiratory: clear to auscultation, normal air movement Cardiovascular: nl pulses, regular rate and rhythm Gastrointestinal: soft Extremities: normal pulses Results Result Diagram: 10/03/16 0440 10/03/16 0440 Results 24 hrs Laboratory Tests Test 10/03/16 04:40 Alanine Aminotransferase (ALT/SGPT) 54 Albumin 3.1 L Albumin/Globulin Ratio 1.10 Alkaline Phosphatase 79 Anion Gap 16 Aspartate Amino Transf (AST/SGOT) 74 H Basophils # 0.0 Basophils % 0.5 Blood Urea Nitrogen 17 Calcium Level 8.2 L Carbon Dioxide Level 24 Chloride Level 105 Creatinine 0.97 Direct Bilirubin 0.00 Eosinophils # 0.3 Eosinophils % 3.2 Globulin 2.80 Glucose Level 83 Hematocrit 38.5 L Hemoglobin 13.2 L Indirect Bilirubin 0.2 Lymphocytes # 2.5 Lymphocytes % 28.9 Mean Corpuscular Hemoglobin 29.9 Mean Corpuscular Hemoglobin Concent 34.3 Mean Corpuscular Volume 87.1 Mean Platelet Volume 9.7 Monocytes # 0.7 Monocytes % 8.6 Neutrophils # 5.1 Neutrophils % 58.8 Nucleated Red Blood Cells # 0.0 Nucleated Red Blood Cells % 0.0 Platelet Count 303 Potassium Level 4.0 Red Blood Count 4.42 L Red Cell Distribution Width 13.3 Sodium Level 141 Total Bilirubin 0.2 Total Protein 5.9 L White Blood Count 8.7 Medications Medications Current Medications Sodium Chloride (1/2 NS) 1,000 ml @ 150 mls/hr Q6H40M IV Last administered on 10/03/16 17:02; Admin Dose 150 MLS/HR; Start 09/30/16 at 22:00 Acetaminophen/ Hydrocodone Bitart ([place] (5/325)) 1 tab Q6H PRN PO pain Last administered on 10/03/16 05:46; Admin Dose 1 TAB; Start 09/30/16 at 22:00 Senna/Docusate Sodium (Senokot-S) 2 tab QHS PO Last administered on 10/02/16 19 :48; Admin Dose 2 TAB; Start 10/01/16 at 21:00 Famotidine (Pepcid) 20 mg BID PO Last administered on 10/03/16 08:48; Admin Dose 20 MG; Start 10/01/16 at 09:00 Ondansetron HCl (Zofran Inj) 4 mg Q6H PRN IV NAUSEA AND/OR VOMITING; Start 09/30 at 22:00 Acetaminophen (Tylenol Tab) 650 mg Q6H PRN PO PAIN AND OR ELEVATED TEMP Last administered on 10/01/16 18:12; Admin Dose 650 MG; Start 10/01/16 at 11:00 Bisacodyl (Dulcolax) 10 mg DAILY PRN PO CONSTIPATION; Start 10/01/16 at 12:30 Heparin Sodium (Porcine) (Heparin (5000 Units/0.5 ml)) 5,000 unit BID SC Last administered on 10/03/16 08:55; Admin Dose 5,000 UNIT; Start 10/01/16 at 21:00 Baclofen (Lioresal) 10 mg Q8 PRN PO PAIN Last administered on 10/03/16 05:46; Admin Dose 10 MG; Start 10/01/16 at 22:30 Morphine Sulfate (morphine) 4 mg Q3H PRN IV PAIN Last administered on 10/03/16 16:56; Admin Dose 4 MG; Start 10/02/16 at 00:00 SHINE GERMAIN MD Oct 03, 2016 19:18
[2016-10-03 20:00] VITALS: BP 111/53; PULSE 81; RESP 21
[2016-10-03] MEDS: SENNA/DOCUSATE NA (8.6MG/50MG) TAB PO SCH (20:11)
[2016-10-03 20:52] VITALS: BP 111/53; RESP 21
[2016-10-04] MEDS: HYDROCODONE/APAP (5/325) TAB PO PRN ×4 (02:16→22:25)
[2016-10-04] MEDS: morphine 4 MG/ML VIAL IV PRN ×6 (02:39→21:40)
[2016-10-04] MEDS: BACLOFEN 10 MG TAB PO PRN ×2 (05:37→16:20)
[2016-10-04] MEDS: SOD CHLORIDE 0.45% 1,000 ML IV SCH ×3 (05:38→20:25)
[2016-10-04 06:30] LABS: BASOPHIL # 0.1 10^3/ul (0.0-0.1); BASOPHILS % 1.1 % (0.0-2.0); EOSINOPHILS # 0.2 10^3/ul (0.0-0.5); EOSINOPHILS % 2.3 % (0.0-7.0); HEMATOCRIT 41.2 % (42.0-52.0); HEMOGLOBIN 14.1 g/dl (14.0-18.0); LYMPHOCYTES # 2.4 10^3/ul (0.8-2.9); LYMPHOCYTES % 25.5 % (15.0-51.0); MEAN CORPUSCULAR HEMOGLOBIN 29.9 pg (29.0-33.0); MEAN CORPUSCULAR HGB CONC 34.2 g/dl (32.0-37.0); MEAN CORPUSCULAR VOLUME 87.4 fl (82.0-101.0); MEAN PLATELET VOLUME 9.3 fl (7.4-10.4); MONOCYTE # 0.7 10^3/ul (0.3-0.9); MONOCYTES % 7.7 % (0.0-11.0); NEUTROPHIL # 5.9 10^3/ul (1.6-7.5); NEUTROPHILS % 63.4 % (39.0-77.0); PLATELET COUNT 315 10^3/UL (140-440); RED BLOOD COUNT 4.71 10^6/ul (4.70-6.10); UNCORRECTED WBC 9.4 10^3/ul (4.8-10.8); WHITE BLOOD COUNT 9.4 10^3/ul (4.8-10.8)
[2016-10-04 06:31] LABS: ALBUMIN 3.3 g/dl (3.3-4.9)
[2016-10-04 06:32] LABS: POTASSIUM 4.7 mmol/L (3.5-5.1)
[2016-10-04 06:34] LABS: ALBUMIN/GLOBULIN RATIO 1.03; BILIRUBIN,INDIRECT 0.2 mg/dl (0-1.1); BILIRUBIN,TOTAL 0.2 mg/dl (0.2-1.3); CALCIUM 8.7 mg/dl (8.4-10.2); CREATININE 0.87 mg/dl (0.61-1.24); TOTAL PROTEIN 6.5 g/dl (6.1-8.1)
[2016-10-04 06:38] LABS: CONDITION 1
[2016-10-04 08:36] VITALS: BP 117/61; RESP 19
[2016-10-04] MEDS: FAMOTIDINE 20 MG TAB PO SCH ×2 (08:54→20:26)
[2016-10-04] MEDS: HEPARIN 5,000 UNIT/0.5 ML SYG SC SCH ×2 (08:58→20:38)
[2016-10-04] MEDS: BISACODYL (EC) 5 MG TAB PO PRN (16:20)
--- NOTE | 2016-10-04 18:08 | PN ---
Date/Time of Note Date/Time of Note DATE: 10/04/16 TIME: 18:06 Assessment/Plan VTE Prophylaxis VTE Prophylaxis Intervention: heparin Lines/Catheters IV Catheter Type (from Nrsg): Peripheral IV Urinary Cath still in place: No Assessment/Plan Assessment/Plan 1. Acute rhabdomyolysis 2. s/p fall 3. HTN 4. CAD + Prev [place] 5. Chronic back pain 6. Hypernatremia PLAN: Cont aggressive IV hydration / serial lab monitoring ACS r/o /2D echo/ aspirin/ lipid profile pain control/ antiemetics/ antipyretics/ supportive care Prophylaxis: Lovenox / pepcid DISP: pending placement Subjective 24 Hr Interval Summary Free Text/Dictation c/o pain Exam/Review of Systems Vital Signs Vitals Vital Signs Date Time Temp Pulse Resp B/P Pulse Ox O2 Delivery O2 Flow Rate FiO2 10/04/16 08:36 98.6 71 19 117/61 98 10/03/16 20:00 Nasal Cannula 2.0 Intake and Output 10/03/16 10/03/16 10/04/16 15:00 23:00 07:00 Intake Total 2000 ml 2940 ml Output Total 1300 ml Balance 700 ml 2940 ml Exam Constitutional: alert, oriented, well developed Head: atraumatic, normocephalic Respiratory: clear to auscultation, normal air movement Cardiovascular: nl pulses, regular rate and rhythm Gastrointestinal: soft Extremities: normal pulses Results Result Diagram: 10/04/16 0552 10/04/16 0552 Results 24 hrs Laboratory Tests Test 10/04/16 05:52 Alanine Aminotransferase (ALT/SGPT) 53 Albumin 3.3 Albumin/Globulin Ratio 1.03 Alkaline Phosphatase 72 Anion Gap 16 Aspartate Amino Transf (AST/SGOT) 67 H Basophils # 0.1 Basophils % 1.1 Blood Urea Nitrogen 16 Calcium Level 8.7 Carbon Dioxide Level 23 Chloride Level 107 Creatinine 0.87 Direct Bilirubin 0.00 Eosinophils # 0.2 Eosinophils % 2.3 Globulin 3.20 Glucose Level 95 Hematocrit 41.2 L Hemoglobin 14.1 Indirect Bilirubin 0.2 Lymphocytes # 2.4 Lymphocytes % 25.5 Mean Corpuscular Hemoglobin 29.9 Mean Corpuscular Hemoglobin Concent 34.2 Mean Corpuscular Volume 87.4 Mean Platelet Volume 9.3 Monocytes # 0.7 Monocytes % 7.7 Neutrophils # 5.9 Neutrophils % 63.4 Nucleated Red Blood Cells # 0.0 Nucleated Red Blood Cells % 0.0 Platelet Count 315 Potassium Level 4.7 Red Blood Count 4.71 Red Cell Distribution Width 13.0 Sodium Level 141 Total Bilirubin 0.2 Total Protein 6.5 White Blood Count 9.4 Medications Medications Current Medications Sodium Chloride (1/2 NS) 1,000 ml @ 150 mls/hr Q6H40M IV Last administered on 10/04/16 13:03; Admin Dose 150 MLS/HR; Start 09/30/16 at 22:00 Acetaminophen/ Hydrocodone Bitart ([place] (5/325)) 1 tab Q6H PRN PO pain Last administered on 10/04/16 16:20; Admin Dose 1 TAB; Start 09/30/16 at 22:00 Senna/Docusate Sodium (Senokot-S) 2 tab QHS PO Last administered on 10/03/16 20 :11; Admin Dose 2 TAB; Start 10/01/16 at 21:00 Famotidine (Pepcid) 20 mg BID PO Last administered on 10/04/16 08:54; Admin Dose 20 MG; Start 10/01/16 at 09:00 Ondansetron HCl (Zofran Inj) 4 mg Q6H PRN IV NAUSEA AND/OR VOMITING; Start 09/30 at 22:00 Acetaminophen (Tylenol Tab) 650 mg Q6H PRN PO PAIN AND OR ELEVATED TEMP Last administered on 10/01/16 18:12; Admin Dose 650 MG; Start 10/01/16 at 11:00 Bisacodyl (Dulcolax) 10 mg DAILY PRN PO CONSTIPATION Last administered on 16:20; Admin Dose 10 MG; Start 10/01/16 at 12:30 Heparin Sodium (Porcine) (Heparin (5000 Units/0.5 ml)) 5,000 unit BID SC Last administered on 10/04/16 08:58; Admin Dose 5,000 UNIT; Start 10/01/16 at 21:00 Baclofen (Lioresal) 10 mg Q8 PRN PO PAIN Last administered on 10/04/16 16:20; Admin Dose 10 MG; Start 10/01/16 at 22:30 Morphine Sulfate (morphine) 4 mg Q3H PRN IV PAIN Last administered on 10/04/16 13:00; Admin Dose 4 MG; Start 10/02/16 at 00:00 SHINE GERMAIN MD Oct 04, 2016 18:07
[2016-10-04] MEDS: SENNA/DOCUSATE NA (8.6MG/50MG) TAB PO SCH (20:26)
[2016-10-04 20:49] VITALS: BP 149/92; RESP 18
[2016-10-04 22:12] VITALS: Ht 167.6 cm; Wt 84.1 kg
[2016-10-04 23:12] VITALS: BP 178/81; RESP 18
[2016-10-05] MEDS: morphine 4 MG/ML VIAL IV PRN ×8 (01:30→23:20)
[2016-10-05 01:31] VITALS: BP 154/62; PULSE 75
[2016-10-05] MEDS: BACLOFEN 10 MG TAB PO PRN ×2 (03:30→20:22)
[2016-10-05] MEDS: SOD CHLORIDE 0.45% 1,000 ML IV SCH ×5 (03:30→22:00)
[2016-10-05 06:30] LABS: BASOPHILS % 0.5 % (0.0-2.0); EOSINOPHILS # 0.2 10^3/ul (0.0-0.5); EOSINOPHILS % 2.7 % (0.0-7.0); HEMATOCRIT 39.4 % (42.0-52.0); HEMOGLOBIN 13.5 g/dl (14.0-18.0); LYMPHOCYTES # 2.6 10^3/ul (0.8-2.9); LYMPHOCYTES % 29.6 % (15.0-51.0); MEAN CORPUSCULAR HEMOGLOBIN 29.9 pg (29.0-33.0); MEAN CORPUSCULAR HGB CONC 34.2 g/dl (32.0-37.0); MEAN CORPUSCULAR VOLUME 87.5 fl (82.0-101.0); MONOCYTE # 0.8 10^3/ul (0.3-0.9); MONOCYTES % 9.2 % (0.0-11.0); PLATELET COUNT 333 10^3/UL (140-440); RED BLOOD COUNT 4.51 10^6/ul (4.70-6.10); RED CELL DISTRIBUTION WIDTH 13.2 % (11.5-14.5); UNCORRECTED WBC 8.7 10^3/ul (4.8-10.8); WHITE BLOOD COUNT 8.7 10^3/ul (4.8-10.8)
[2016-10-05] MEDS: HYDROCODONE/APAP (5/325) TAB PO PRN ×2 (06:30→16:26)
[2016-10-05 06:33] LABS: ALBUMIN 3.3 g/dl (3.3-4.9); POTASSIUM 4.2 mmol/L (3.5-5.1)
[2016-10-05 06:35] LABS: BILIRUBIN,INDIRECT 0.2 mg/dl (0-1.1); BILIRUBIN,TOTAL 0.2 mg/dl (0.2-1.3); CREATININE 1.01 mg/dl (0.61-1.24)
[2016-10-05 06:36] LABS: ALBUMIN/GLOBULIN RATIO 1.13; CALCIUM 8.5 mg/dl (8.4-10.2); TOTAL PROTEIN 6.2 g/dl (6.1-8.1)
[2016-10-05 06:44] LABS: CONDITION 1
[2016-10-05 07:34] VITALS: BP 114/73; RESP 20
[2016-10-05] MEDS: FAMOTIDINE 20 MG TAB PO SCH ×2 (09:18→20:14)
[2016-10-05] MEDS: HEPARIN 5,000 UNIT/0.5 ML SYG SC SCH ×2 (10:39→20:19)
[2016-10-05 19:18] VITALS: BP 151/87; RESP 20
[2016-10-05] MEDS: SENNA/DOCUSATE NA (8.6MG/50MG) TAB PO SCH (20:14)
--- NOTE | 2016-10-05 23:33 | PN ---
Date/Time of Note Date/Time of Note DATE: 10/05/16 TIME: 23:31 Assessment/Plan VTE Prophylaxis VTE Prophylaxis Intervention: heparin Lines/Catheters IV Catheter Type (from Nrsg): Peripheral IV Urinary Cath still in place: No Assessment/Plan Assessment/Plan 1. Acute rhabdomyolysis 2. s/p fall 3. HTN 4. CAD + Prev [place] 5. Chronic back pain 6. Hypernatremia PLAN: Cont aggressive IV hydration / serial lab monitoring ACS r/o /2D echo/ aspirin/ lipid profile pain control/ antiemetics/ antipyretics/ supportive care Prophylaxis: Lovenox / pepcid DISP: pending placement Subjective 24 Hr Interval Summary Free Text/Dictation c/o generalized body pain Exam/Review of Systems Vital Signs Vitals Vital Signs Date Time Temp Pulse Resp B/P Pulse Ox O2 Delivery O2 Flow Rate FiO2 10/05/16 19:18 98.5 85 20 151/87 96 10/03/16 20:00 Nasal Cannula 2.0 Intake and Output 10/04/16 10/04/16 10/05/16 14:59 22:59 06:59 Intake Total 600 ml 1830 ml Output Total 4 ml Balance 600 ml 1826 ml Exam Constitutional: alert, oriented, well developed Head: atraumatic, normocephalic Respiratory: clear to auscultation, normal air movement Cardiovascular: nl pulses, regular rate and rhythm Gastrointestinal: soft Extremities: normal pulses Results Result Diagram: 10/05/16 0555 10/05/16 0555 Results 24 hrs Laboratory Tests Test 10/05/16 05:55 Alanine Aminotransferase (ALT/SGPT) 59 Albumin 3.3 Albumin/Globulin Ratio 1.13 Alkaline Phosphatase 75 Anion Gap 11 Aspartate Amino Transf (AST/SGOT) 57 H Basophils # 0.0 Basophils % 0.5 Blood Urea Nitrogen 16 Calcium Level 8.5 Carbon Dioxide Level 29 Chloride Level 105 Creatinine 1.01 Direct Bilirubin 0.00 Eosinophils # 0.2 Eosinophils % 2.7 Globulin 2.90 Glucose Level 84 Hematocrit 39.4 L Hemoglobin 13.5 L Indirect Bilirubin 0.2 Lymphocytes # 2.6 Lymphocytes % 29.6 Mean Corpuscular Hemoglobin 29.9 Mean Corpuscular Hemoglobin Concent 34.2 Mean Corpuscular Volume 87.5 Mean Platelet Volume 9.0 Monocytes # 0.8 Monocytes % 9.2 Neutrophils # 5.0 Neutrophils % 58.0 Nucleated Red Blood Cells # 0.0 Nucleated Red Blood Cells % 0.0 Platelet Count 333 Potassium Level 4.2 Red Blood Count 4.51 L Red Cell Distribution Width 13.2 Sodium Level 141 Total Bilirubin 0.2 Total Protein 6.2 White Blood Count 8.7 Medications Medications Current Medications Sodium Chloride (1/2 NS) 1,000 ml @ 150 mls/hr Q6H40M IV Last administered on 10/05/16 20:22; Admin Dose 150 MLS/HR; Start 09/30/16 at 22:00 Acetaminophen/ Hydrocodone Bitart ([place] (5/325)) 1 tab Q6H PRN PO pain Last administered on 10/05/16 16:26; Admin Dose 1 TAB; Start 09/30/16 at 22:00 Senna/Docusate Sodium (Senokot-S) 2 tab QHS PO Last administered on 10/05/16 20 :14; Admin Dose 2 TAB; Start 10/01/16 at 21:00 Famotidine (Pepcid) 20 mg BID PO Last administered on 10/05/16 20:14; Admin Dose 20 MG; Start 10/01/16 at 09:00 Ondansetron HCl (Zofran Inj) 4 mg Q6H PRN IV NAUSEA AND/OR VOMITING; Start 09/30 at 22:00 Acetaminophen (Tylenol Tab) 650 mg Q6H PRN PO PAIN AND OR ELEVATED TEMP Last administered on 10/01/16 18:12; Admin Dose 650 MG; Start 10/01/16 at 11:00 Bisacodyl (Dulcolax) 10 mg DAILY PRN PO CONSTIPATION Last administered on 16:20; Admin Dose 10 MG; Start 10/01/16 at 12:30 Heparin Sodium (Porcine) (Heparin (5000 Units/0.5 ml)) 5,000 unit BID SC Last administered on 10/05/16 20:19; Admin Dose 5,000 UNIT; Start 10/01/16 at 21:00 Baclofen (Lioresal) 10 mg Q8 PRN PO PAIN Last administered on 10/05/16 20:22; Admin Dose 10 MG; Start 10/01/16 at 22:30 Morphine Sulfate (morphine) 4 mg Q3H PRN IV PAIN Last administered on 10/05/16 23:20; Admin Dose 4 MG; Start 10/02/16 at 00:00 SHINE GERMAIN MD Oct 05, 2016 23:33
[2016-10-06] MEDS: HYDROCODONE/APAP (5/325) TAB PO PRN ×4 (00:01→22:59)
[2016-10-06] MEDS: morphine 4 MG/ML VIAL IV PRN ×7 (02:53→21:46)
[2016-10-06] MEDS: SOD CHLORIDE 0.45% 1,000 ML IV SCH ×4 (02:53→18:19)
[2016-10-06] MEDS: BACLOFEN 10 MG TAB PO PRN ×2 (06:08→14:13)
[2016-10-06 06:09] LABS: BASOPHIL # 0.1 10^3/ul (0.0-0.1); BASOPHILS % 0.7 % (0.0-2.0); EOSINOPHILS # 0.3 10^3/ul (0.0-0.5); EOSINOPHILS % 3.4 % (0.0-7.0); HEMATOCRIT 38.1 % (42.0-52.0); HEMOGLOBIN 13.2 g/dl (14.0-18.0); LYMPHOCYTES # 2.5 10^3/ul (0.8-2.9); LYMPHOCYTES % 32.5 % (15.0-51.0); MEAN CORPUSCULAR HEMOGLOBIN 30.1 pg (29.0-33.0); MEAN CORPUSCULAR HGB CONC 34.6 g/dl (32.0-37.0); MEAN PLATELET VOLUME 9.4 fl (7.4-10.4); MONOCYTE # 0.7 10^3/ul (0.3-0.9); MONOCYTES % 9.3 % (0.0-11.0); NEUTROPHIL # 4.1 10^3/ul (1.6-7.5); NEUTROPHILS % 54.1 % (39.0-77.0); PLATELET COUNT 311 10^3/UL (140-440); RED BLOOD COUNT 4.38 10^6/ul (4.70-6.10); RED CELL DISTRIBUTION WIDTH 13.6 % (11.5-14.5); UNCORRECTED WBC 7.7 10^3/ul (4.8-10.8); WHITE BLOOD COUNT 7.7 10^3/ul (4.8-10.8)
[2016-10-06 06:14] LABS: POTASSIUM 4.3 mmol/L (3.5-5.1)
[2016-10-06 06:17] LABS: ALBUMIN/GLOBULIN RATIO 1.03; BILIRUBIN,INDIRECT 0.1 mg/dl (0-1.1); BILIRUBIN,TOTAL 0.1 mg/dl (0.2-1.3); CALCIUM 8.4 mg/dl (8.4-10.2); TOTAL PROTEIN 5.9 g/dl (6.1-8.1)
[2016-10-06 06:28] LABS: CONDITION 1
[2016-10-06 08:22] VITALS: BP 130/69; RESP 18
[2016-10-06] MEDS: FAMOTIDINE 20 MG TAB PO SCH ×2 (09:07→21:45)
[2016-10-06] MEDS: HEPARIN 5,000 UNIT/0.5 ML SYG SC SCH ×2 (09:20→22:02)
--- NOTE | 2016-10-06 13:54 | PN ---
Date/Time of Note Date/Time of Note DATE: 10/06/16 TIME: 13:44 Assessment/Plan VTE Prophylaxis VTE Prophylaxis Intervention: heparin Lines/Catheters IV Catheter Type (from Nrs): Peripheral IV Urinary Cath still in place: No Assessment/Plan Assessment/Plan IMPRESSION 1. Acute rhabdomyolysis 2. s/p fall 3. HTN 4. Hx of CAD + Prev [place] 5. Chronic back pain 6. Morbid Obesity PLAN: IV fluid. Will re-check CK. kidney function has remained stable Cont current medical mgmt, including PRN pain meds DVT/GI Prophylaxis: Lovenox / pepcid DISP: pending placement Subjective 24 Hr Interval Summary Free Text/Dictation no acute events. c/o generalized body pain Exam/Review of Systems Vital Signs Vitals Vital Signs Date Time Temp Pulse Resp B/P Pulse Ox O2 Delivery O2 Flow Rate FiO2 10/06/16 08:22 98.0 18 130/69 96 10/05/16 19:18 85 10/03/16 20:00 Nasal Cannula 2.0 Intake and Output 10/05/16 10/05/16 10/06/16 15:00 23:00 07:00 Intake Total 1600 ml 1810 ml Balance 1600 ml 1810 ml Exam Constitutional: alert, oriented, well developed Head: atraumatic, normocephalic Respiratory: clear to auscultation, normal air movement Cardiovascular: nl pulses, regular rate and rhythm Gastrointestinal: soft Extremities: normal pulses Results Result Diagram: 10/06/16 0445 10/06/16 0445 Results 24 hrs Laboratory Tests Test 10/06/16 04:45 Alanine Aminotransferase (ALT/SGPT) 58 Albumin 3.0 L Albumin/Globulin Ratio 1.03 Alkaline Phosphatase 74 Anion Gap 13 Aspartate Amino Transf (AST/SGOT) 84 H Basophils # 0.1 Basophils % 0.7 Blood Urea Nitrogen 16 Calcium Level 8.4 Carbon Dioxide Level 26 Chloride Level 105 Creatinine 1.00 Direct Bilirubin 0.00 Eosinophils # 0.3 Eosinophils % 3.4 Globulin 2.90 Glucose Level 83 Hematocrit 38.1 L Hemoglobin 13.2 L Indirect Bilirubin 0.1 Lymphocytes # 2.5 Lymphocytes % 32.5 Mean Corpuscular Hemoglobin 30.1 Mean Corpuscular Hemoglobin Concent 34.6 Mean Corpuscular Volume 87.0 Mean Platelet Volume 9.4 Monocytes # 0.7 Monocytes % 9.3 Neutrophils # 4.1 Neutrophils % 54.1 Nucleated Red Blood Cells # 0.0 Nucleated Red Blood Cells % 0.0 Platelet Count 311 Potassium Level 4.3 Red Blood Count 4.38 L Red Cell Distribution Width 13.6 Sodium Level 140 Total Bilirubin 0.1 L Total Protein 5.9 L White Blood Count 7.7 Medications Medications Current Medications Sodium Chloride (1/2 NS) 1,000 ml @ 150 mls/hr Q6H40M IV Last administered on 10/06/16 09:40; Admin Dose 150 MLS/HR; Start 09/30/16 at 22:00 Acetaminophen/ Hydrocodone Bitart ([place] (5/325)) 1 tab Q6H PRN PO pain Last administered on 10/06/16 09:40; Admin Dose 1 TAB; Start 09/30/16 at 22:00 Senna/Docusate Sodium (Senokot-S) 2 tab QHS PO Last administered on 10/05/16 20 :14; Admin Dose 2 TAB; Start 10/01/16 at 21:00 Famotidine (Pepcid) 20 mg BID PO Last administered on 10/06/16 09:07; Admin Dose 20 MG; Start 10/01/16 at 09:00 Ondansetron HCl (Zofran Inj) 4 mg Q6H PRN IV NAUSEA AND/OR VOMITING; Start 09/30 at 22:00 Acetaminophen (Tylenol Tab) 650 mg Q6H PRN PO PAIN AND OR ELEVATED TEMP Last administered on 10/01/16 18:12; Admin Dose 650 MG; Start 10/01/16 at 11:00 Bisacodyl (Dulcolax) 10 mg DAILY PRN PO CONSTIPATION Last administered on 16:20; Admin Dose 10 MG; Start 10/01/16 at 12:30 Heparin Sodium (Porcine) (Heparin (5000 Units/0.5 ml)) 5,000 unit BID SC Last administered on 10/06/16 09:20; Admin Dose 5,000 UNIT; Start 10/01/16 at 21:00 Baclofen (Lioresal) 10 mg Q8 PRN PO PAIN Last administered on 10/06/16 06:08; Admin Dose 10 MG; Start 10/01/16 at 22:30 Morphine Sulfate (morphine) 4 mg Q3H PRN IV PAIN Last administered on 10/06/16t 12:12; Admin Dose 4 MG; Start 10/02/16 at 00:00 SHINE GERMAIN MD Oct 06, 2016 13:54
[2016-10-06] MEDS ORDERED: FUROSEMIDE 20 MG INJ IV ONE (14:00)
[2016-10-06] MEDS: ASPIRIN (EC) 81 MG TAB PO SCH (14:14)
[2016-10-06 20:11] VITALS: BP 123/73; RESP 18
[2016-10-06] MEDS: SENNA/DOCUSATE NA (8.6MG/50MG) TAB PO SCH (21:00)
[2016-10-07] MEDS: morphine 4 MG/ML VIAL IV PRN ×6 (02:25→20:57)
[2016-10-07] MEDS: BACLOFEN 10 MG TAB PO PRN ×2 (03:06→15:53)
[2016-10-07] MEDS: SOD CHLORIDE 0.45% 1,000 ML IV SCH ×2 (05:33→21:02)
[2016-10-07] MEDS: HYDROCODONE/APAP (5/325) TAB PO PRN ×2 (06:15→23:12)
[2016-10-07 07:47] VITALS: BP 125/74; RESP 20
[2016-10-07] MEDS: FAMOTIDINE 20 MG TAB PO SCH ×2 (08:55→20:52)
[2016-10-07] MEDS: ASPIRIN (EC) 81 MG TAB PO SCH (08:55)
[2016-10-07] MEDS: HEPARIN 5,000 UNIT/0.5 ML SYG SC SCH ×2 (08:58→20:55)
--- NOTE | 2016-10-07 10:37 | PN ---
Date/Time of Note Date/Time of Note DATE: 10/07/16 TIME: 10:33 Assessment/Plan VTE Prophylaxis VTE Prophylaxis Intervention: heparin Lines/Catheters IV Catheter Type (from Nrsg): Peripheral IV Urinary Cath still in place: No Assessment/Plan Assessment/Plan 1. Acute rhabdomyolysis - 2/2 to immobilization - improved - CK 295 - continue with IV fluids - transition to PO 2. s/p fall - fall precautions - PT eval 3. HTN essential - bp controlled - continue with prn hydralazine 4. CAD + Prev [place] - on aspirin 5. Chronic back pain - PT eval, pain medications 6. Morbid Obesity - BMI 29.9 - continue with monitoring, dietary - low fat/low cholesterol, Cardiac 7. GI ppx - pepcid 8. DVT ppx - heparin dispo - f/u recs, awaiting placement, as per clinical course. this progress note took greater than 30 minutes to complete Subjective 24 Hr Interval Summary Free Text/Dictation Patient was getting bathed. Was complaining of generalized pain all over. Spoke to the nurse about the care plan. 15 minutes spent. Exam/Review of Systems Vital Signs Vitals Vital Signs Date Time Temp Pulse Resp B/P Pulse Ox O2 Delivery O2 Flow Rate FiO2 10/07/16 07:47 98.6 73 20 125/74 97 10/03/16 20:00 Nasal Cannula 2.0 Intake and Output 10/06/16 10/06/16 10/07/16 15:00 23:00 07:00 Intake Total 550 ml 1450 ml 1690 ml Balance 550 ml 1450 ml 1690 ml Exam Gen Tessa: moderate distress 2/2 to generalized pain, AAOx4 HEENT: NC/AT, PERRLA, EOMI, no pharyngeal erythema, no tonsillar exudates, no lymphadenopathy, no JVD, no carotid bruits NECK: supple, no thyromegaly THORAX: symmetrical, no obvious deformities CV: S1S2, RRR, no M/G/R Lungs: CTAB no W/C/R/R Abd: soft, NT/ND, +BS, no rebound, no guarding, neg HSM EXT: no edema, no ecchymosis, no clubbing, FROM Neuro: CN II-XII grossly intact, no focal deficits Psych: anxious Skin: C/D/I Results Result Diagram: 10/06/16 0445 10/06/16 0445 Results 24 hrs Laboratory Tests Test 10/07/16 05:12 Creatine Kinase 245 H Medications Medications Current Medications Sodium Chloride (1/2 NS) 1,000 ml @ 75 mls/hr [id number] IV Last administered on 10/07/16 05:33; Admin Dose 75 MLS/HR; Start 09/30/16 at 22:00 Acetaminophen/ Hydrocodone Bitart ([place] (5/325)) 1 tab Q6H PRN PO pain Last administered on 10/07/16 06:15; Admin Dose 1 TAB; Start 09/30/16 at 22:00 Senna/Docusate Sodium (Senokot-S) 2 tab QHS PO Last administered on 10/06/16 21 :00; Admin Dose 2 TAB; Start 10/01/16 at 21:00 Famotidine (Pepcid) 20 mg BID PO Last administered on 10/07/16 08:55; Admin Dose 20 MG; Start 10/01/16 at 09:00 Ondansetron HCl (Zofran Inj) 4 mg Q6H PRN IV NAUSEA AND/OR VOMITING; Start 09/30 at 22:00 Acetaminophen (Tylenol Tab) 650 mg Q6H PRN PO PAIN AND OR ELEVATED TEMP Last administered on 10/01/16 18:12; Admin Dose 650 MG; Start 10/01/16 at 11:00 Bisacodyl (Dulcolax) 10 mg DAILY PRN PO CONSTIPATION Last administered on 16:20; Admin Dose 10 MG; Start 10/01/16 at 12:30 Heparin Sodium (Porcine) (Heparin (5000 Units/0.5 ml)) 5,000 unit BID SC Last administered on 10/07/16 08:58; Admin Dose 5,000 UNIT; Start 10/01/16 at 21:00 Baclofen (Lioresal) 10 mg Q8 PRN PO PAIN Last administered on 10/07/16 03:06; Admin Dose 10 MG; Start 10/01/16 at 22:30 Morphine Sulfate (morphine) 4 mg Q3H PRN IV PAIN Last administered on 10/07/16 08:50; Admin Dose 4 MG; Start 10/02/16 at 00:00 Aspirin (Halfprin) 81 mg DAILY PO Last administered on 10/07/16 08:55; Admin Dose 81 MG; Start 10/06/16 at 14:00 Carvedilol (Coreg) 3.125 mg BID PO Last administered on 10/07/16 08:56; Admin Dose 3.125 MG; Start 10/06/16 at 14:00 TESSA BLOUNT MD Oct 07, 2016 10:37
[2016-10-07] MEDS: BISACODYL (EC) 5 MG TAB PO PRN (13:03)
[2016-10-07] MEDS: CIPROFLOXACIN 0.3% 2.5 ML OPH BOTH EYES SCH ×2 (17:26→23:09)
[2016-10-07 20:34] VITALS: BP 94/57; RESP 18
[2016-10-07] MEDS: SENNA/DOCUSATE NA (8.6MG/50MG) TAB PO SCH (20:52)
[2016-10-08] MEDS: morphine 4 MG/ML VIAL IV PRN ×7 (00:20→20:55)
[2016-10-08] MEDS: CIPROFLOXACIN 0.3% 2.5 ML OPH BOTH EYES SCH ×5 (04:03→22:58)
[2016-10-08 07:19] VITALS: BP 123/65; RESP 20
[2016-10-08] MEDS: HYDROCODONE/APAP (5/325) TAB PO PRN ×3 (08:47→22:58)
[2016-10-08] MEDS: FAMOTIDINE 20 MG TAB PO SCH ×2 (08:47→20:57)
[2016-10-08] MEDS: ASPIRIN (EC) 81 MG TAB PO SCH (08:47)
[2016-10-08] MEDS: BACLOFEN 10 MG TAB PO PRN (08:48)
[2016-10-08] MEDS: HEPARIN 5,000 UNIT/0.5 ML SYG SC SCH ×2 (08:54→21:02)
[2016-10-08 10:37] LABS: BASOPHILS % 0.6 % (0.0-2.0); EOSINOPHILS # 0.2 10^3/ul (0.0-0.5); EOSINOPHILS % 2.6 % (0.0-7.0); HEMATOCRIT 38.8 % (42.0-52.0); HEMOGLOBIN 13.3 g/dl (14.0-18.0); LYMPHOCYTES % 26.1 % (15.0-51.0); MEAN CORPUSCULAR HEMOGLOBIN 29.7 pg (29.0-33.0); MEAN CORPUSCULAR HGB CONC 34.3 g/dl (32.0-37.0); MEAN CORPUSCULAR VOLUME 86.4 fl (82.0-101.0); MEAN PLATELET VOLUME 9.3 fl (7.4-10.4); MONOCYTE # 0.5 10^3/ul (0.3-0.9); MONOCYTES % 6.4 % (0.0-11.0); NEUTROPHILS % 64.3 % (39.0-77.0); PLATELET COUNT 295 10^3/UL (140-440); RED CELL DISTRIBUTION WIDTH 13.5 % (11.5-14.5); UNCORRECTED WBC 7.8 10^3/ul (4.8-10.8); WHITE BLOOD COUNT 7.8 10^3/ul (4.8-10.8)
[2016-10-08] MEDS: SOD CHLORIDE 0.45% 1,000 ML IV SCH ×2 (10:37→22:58)
[2016-10-08 10:45] LABS: CHLORIDE 105 mmol/L (97-110); POTASSIUM 3.9 mmol/L (3.5-5.1); SODIUM 140 mmol/L (135-144)
[2016-10-08 10:47] LABS: CONDITION 1
[2016-10-08 10:48] LABS: ANION GAP 15 (8-16); BLOOD UREA NITROGEN 18 mg/dl (7-20); CARBON DIOXIDE 24 mmol/L (21-31); CREATINE KINASE 121 IU/L (23-200); GLUCOSE 127 mg/dl (70-220)
[2016-10-08 10:49] LABS: CALCIUM 8.5 mg/dl (8.4-10.2)
[2016-10-08 10:58] LABS: CK-MB 1.57 ng/ml (0.0-2.4)
[2016-10-08 11:00] LABS: TROPONIN-I < 0.010 ng/ml (0.00-0.12)
[2016-10-08] MEDS: BACLOFEN 10 MG TAB PO SCH ×2 (15:13→20:57)
--- NOTE | 2016-10-08 15:37 | CONS ---
Date/Time of Note Date/Time of Note DATE: 10/08/16 TIME: 15:33 Consult Date/Type/Reason Admit Date/Time Sep 30, 2016 at 20:05 Initial Consult Date Type of Consultation: iNTERNAL MEDICINE Subjective Complains of overall pain and muscle stiffness. Awake and alert today Unable to do PT secondary to pain. Objective Vital Signs Date Time Temp Pulse Resp B/P Pulse Ox O2 Delivery O2 Flow Rate FiO2 10/08/16 07:19 97.8 77 20 123/65 98 Intake and Output 10/07/16 10/07/16 10/08/16 15:00 23:00 07:00 Intake Total 1560 ml 800 ml Output Total 500 ml Balance 1060 ml 800 ml Results/Medications Result Diagram: 10/08/16 0950 10/08/16 0950 Results 24 hrs Laboratory Tests Test 10/08/16 09:50 Anion Gap 15 Basophils # 0.0 Basophils % 0.6 Blood Urea Nitrogen 18 Calcium Level 8.5 Carbon Dioxide Level 24 Chloride Level 105 Creatine Kinase 121 Creatine Kinase Index 1.3 Creatinine 1.00 Creatinine Kinase MB (Mass) 1.57 Eosinophils # 0.2 Eosinophils % 2.6 Glucose Level 127 Hematocrit 38.8 L Hemoglobin 13.3 L Lymphocytes # 2.0 Lymphocytes % 26.1 Mean Corpuscular Hemoglobin 29.7 Mean Corpuscular Hemoglobin Concent 34.3 Mean Corpuscular Volume 86.4 Mean Platelet Volume 9.3 Monocytes # 0.5 Monocytes % 6.4 Neutrophils # 5.0 Neutrophils % 64.3 Nucleated Red Blood Cells # 0.0 Nucleated Red Blood Cells % 0.0 Platelet Count 295 Potassium Level 3.9 Red Blood Count 4.50 L Red Cell Distribution Width 13.5 Sodium Level 140 Troponin I < 0.010 White Blood Count 7.8 Medications Current Medications Sodium Chloride (1/2 NS) 1,000 ml @ 75 mls/hr [id number] IV Last administered on 10/08/16 10:37; Admin Dose 75 MLS/HR; Start 09/30/16 at 22:00 Acetaminophen/ Hydrocodone Bitart ([place] (5/325)) 1 tab Q6H PRN PO pain Last administered on 10/08/16 15:06; Admin Dose 1 TAB; Start 09/30/16 at 22:00 Senna/Docusate Sodium (Senokot-S) 2 tab QHS PO Last administered on 10/07/16 20 :52; Admin Dose 2 TAB; Start 10/01/16 at 21:00 Famotidine (Pepcid) 20 mg BID PO Last administered on 10/08/16 08:47; Admin Dose 20 MG; Start 10/01/16 at 09:00 Ondansetron HCl (Zofran Inj) 4 mg Q6H PRN IV NAUSEA AND/OR VOMITING Last administered on 10/08/16 15:13; Admin Dose 4 MG; Start 09/30/16 at 22:00 Acetaminophen (Tylenol Tab) 650 mg Q6H PRN PO PAIN AND OR ELEVATED TEMP Last administered on 10/01/16 18:12; Admin Dose 650 MG; Start 10/01/16 at 11:00 Bisacodyl (Dulcolax) 10 mg DAILY PRN PO CONSTIPATION Last administered on 13:03; Admin Dose 10 MG; Start 10/01/16 at 12:30 Heparin Sodium (Porcine) (Heparin (5000 Units/0.5 ml)) 5,000 unit BID SC Last administered on 10/07/16 20:55; Admin Dose 5,000 UNIT; Start 10/01/16 at 21:00 Morphine Sulfate (morphine) 4 mg Q3H PRN IV PAIN Last administered on 10/08/16 13:40; Admin Dose 4 MG; Start 10/02/16 at 00:00 Aspirin (Halfprin) 81 mg DAILY PO Last administered on 10/08/16 08:47; Admin Dose 81 MG; Start 10/06/16 at 14:00 Carvedilol (Coreg) 3.125 mg BID PO Last administered on 10/08/16 08:47; Admin Dose 3.125 MG; Start 10/06/16 at 14:00 Ciprofloxacin HCl (Ciloxan 0.3% Oph) 1 drop Q6H BOTH EYES Last administered on 10/08/16 10:37; Admin Dose 1 DROP; Start 10/07/16 at 16:30; Stop 10/12/16 at 16: 20 Baclofen (Lioresal) 10 mg Q8 PO Last administered on 10/08/16 15:13; Admin Dose 10 MG; Start 10/08/16 at 15:30 Assessment/Plan Chief Complaint/Hosp Course Assessment/Plan 1. Acute rhabdomyolysis - 2/2 to immobilization - improved - CK 295 -encourage by mouth liquids 2. s/p fall - fall precautions - PT eval currently patient not compliant with PT secondary to excessive generalized pain 3. HTN essential - bp controlled - continue with prn hydralazine 4. CAD + Prev [place] - on aspirin 5. Chronic back pain - PT eval, pain medications. Pain management evaluation 6. Morbid Obesity - BMI 29.9 - continue with monitoring, dietary - low fat/low cholesterol, Cardiac 7. GI ppx - pepcid 8. DVT ppx - heparin Disposition [facility] Discussed with staff. Problems: ALEXIA SUNSHINE MD, [facility] Oct 08, 2016 15:37
[2016-10-08 19:00] VITALS: BP 136/90; RESP 19
[2016-10-08] MEDS: SENNA/DOCUSATE NA (8.6MG/50MG) TAB PO SCH (20:56)
[2016-10-09] MEDS: morphine 4 MG/ML VIAL IV PRN ×4 (00:20→11:41)
[2016-10-09] MEDS: SOD CHLORIDE 0.45% 1,000 ML IV SCH ×2 (03:30→17:12)
[2016-10-09] MEDS: CIPROFLOXACIN 0.3% 2.5 ML OPH BOTH EYES SCH ×4 (04:21→22:43)
[2016-10-09] MEDS: BACLOFEN 10 MG TAB PO SCH ×3 (05:40→22:43)
[2016-10-09] MEDS: HYDROCODONE/APAP (5/325) TAB PO PRN (07:03)
[2016-10-09 07:52] VITALS: BP 126/74; RESP 18
[2016-10-09] MEDS: ASPIRIN (EC) 81 MG TAB PO SCH (08:47)
[2016-10-09] MEDS: FAMOTIDINE 20 MG TAB PO SCH ×2 (08:47→21:01)
[2016-10-09] MEDS: HEPARIN 5,000 UNIT/0.5 ML SYG SC SCH ×2 (09:01→21:14)
--- NOTE | 2016-10-09 12:48 | PN ---
Date/Time of Note Date/Time of Note DATE: 10/09/16 TIME: 12:35 Assessment/Plan VTE Prophylaxis VTE Prophylaxis Intervention: heparin Lines/Catheters IV Catheter Type (from Nrsg): Peripheral IV Urinary Cath still in place: No Assessment/Plan Assessment/Plan 1. Acute rhabdomyolysis - toxic screen positive for amphetamine admission, patient has muscle stiffness and spasm, neurology consult 2. s/p fall - fall precautions - PT eval currently patient not compliant with PT secondary to excessive generalized pain 3. HTN essential - bp controlled - continue with prn hydralazine 4. CAD + Prev [place] - on aspirin 5. Chronic back pain - PT eval, pain medications. Pain management evaluation 6. Morbid Obesity - BMI 29.9 - continue with monitoring, dietary - low fat/low cholesterol, Cardiac 7. GI ppx - pepcid 8. DVT ppx - heparin Subjective 24 Hr Interval Summary Free Text/Dictation muscle spasm stared from lower extremities now the whole body including arms in the last 3 months or so Exam/Review of Systems Vital Signs Vitals Vital Signs Date Time Temp Pulse Resp B/P Pulse Ox O2 Delivery O2 Flow Rate FiO2 10/09/16 07:52 97.5 78 18 126/74 99 Intake and Output 10/08/16 10/08/16 10/09/16 15:00 23:00 07:00 Intake Total 1000 ml 2080 ml 840 ml Balance 1000 ml 2080 ml 840 ml Exam Constitutional: alert, oriented, well developed Psych: nl mood/affect, no complaints Head: atraumatic, normocephalic Eyes: EOMI, PERRL, nl conjunctiva, nl lids, nl sclera ENMT: nl external ears & nose, nl lips & teeth, nl nasal mucosa & septum Neck: non-tender, supple Respiratory: clear to auscultation, normal air movement Cardiovascular: nl pulses, regular rate and rhythm Gastrointestinal: nl liver, spleen, non-tender Musculoskeletal: muscle tone (high), muscle weakness Extremities: normal pulses Neurological: [employer] II-XII intact, nl mental status, nl speech Skin: nl turgor, rash or lesions Lymph: nl lymph nodes Results Result Diagram: 10/08/16 0950 10/08/16 0950 Medications Medications Current Medications Sodium Chloride (1/2 NS) 1,000 ml @ 75 mls/hr [id number] IV Last administered on 10/08/16 22:58; Admin Dose 75 MLS/HR; Start 09/30/16 at 22:00 Acetaminophen/ Hydrocodone Bitart ([place] (5/325)) 1 tab Q6H PRN PO pain Last administered on 10/09/16 07:03; Admin Dose 1 TAB; Start 09/30/16 at 22:00 Senna/Docusate Sodium (Senokot-S) 2 tab QHS PO Last administered on 10/08/16 20 :56; Admin Dose 2 TAB; Start 10/01/16 at 21:00 Famotidine (Pepcid) 20 mg BID PO Last administered on 10/09/16 08:47; Admin Dose 20 MG; Start 10/01/16 at 09:00 Ondansetron HCl (Zofran Inj) 4 mg Q6H PRN IV NAUSEA AND/OR VOMITING Last administered on 10/08/16 15:13; Admin Dose 4 MG; Start 09/30/16 at 22:00 Acetaminophen (Tylenol Tab) 650 mg Q6H PRN PO PAIN AND OR ELEVATED TEMP Last administered on 10/01/16 18:12; Admin Dose 650 MG; Start 10/01/16 at 11:00 Bisacodyl (Dulcolax) 10 mg DAILY PRN PO CONSTIPATION Last administered on 13:03; Admin Dose 10 MG; Start 10/01/16 at 12:30 Heparin Sodium (Porcine) (Heparin (5000 Units/0.5 ml)) 5,000 unit BID SC Last administered on 10/09/16 09:01; Admin Dose 5,000 UNIT; Start 10/01/16 at 21:00 Morphine Sulfate (morphine) 4 mg Q3H PRN IV PAIN Last administered on 11:41; Admin Dose 4 MG; Start 10/02/16 at 00:00 Aspirin (Halfprin) 81 mg DAILY PO Last administered on 10/09/16 08:47; Admin Dose 81 MG; Start 10/06/16 at 14:00 Carvedilol (Coreg) 3.125 mg BID PO Last administered on 10/09/16 08:49; Admin Dose 3.125 MG; Start 10/06/16 at 14:00 Ciprofloxacin HCl (Ciloxan 0.3% Oph) 1 drop Q6H BOTH EYES Last administered on 10/09/16 08:49; Admin Dose 1 DROP; Start 10/07/16 at 16:30; Stop 10/12/16 at 16: 20 Baclofen (Lioresal) 10 mg Q8 PO Last administered on 10/09/16 05:40; Admin Dose 10 MG; Start 10/08/16 at 15:30 CEDRICK REESE MD Oct 09, 2016 12:48
[2016-10-09] MEDS ORDERED: oxyCODONE 5 MG TAB PO PRN (16:30)
[2016-10-09] MEDS: METHADONE 5 MG TAB PO SCH (17:11)
[2016-10-09] MEDS: KETOROLAC 30 MG INJ IV SCH ×2 (17:11→22:43)
[2016-10-09 20:06] VITALS: BP 133/85; RESP 20
[2016-10-09] MEDS ORDERED: DULOXETINE 30 MG CAP DR PO SCH (21:00)
[2016-10-09] MEDS ORDERED: traZODone 50 MG TAB PO SCH (21:00)
[2016-10-09] MEDS: SENNA/DOCUSATE NA (8.6MG/50MG) TAB PO SCH (21:01)
--- NOTE | 2016-10-09 21:40 | RADRPT ---
PROCEDURE: XR Lumbar Spine. CLINICAL INDICATION: Back pain. TECHNIQUE: Three views. AP, lateral and cone-down lateral view of the lumbar spine were obtained. COMPARISON: No prior studies are available for comparison. FINDINGS: There is normal stature and alignment of the vertebrae. There is no fracture. There is no lytic or blastic lesion. There are degenerative changes with osteophytes throughout. There is disk space narrowing at L4-5 a nd L5-S1. The paravertebral soft tissues are unremarkable. IMPRESSION: 1. Degenerative changes throughout. 2. No acute abnormality. RPTAT: QQ .Nitesh Bess MD, MD Date Time Electronically viewed and signed by .Nitesh Bess MD, on 10/09/2016 21:39 .R/
--- NOTE | 2016-10-09 21:41 | RADRPT ---
PROCEDURE: XR Thoracic Spine. CLINICAL INDICATION: Back pain. TECHNIQUE: Two views. Frontal and lateral. COMPARISON: None available FINDINGS: There is normal stature and alignment of the vertebrae. There is no fracture. There is no lytic or blastic lesion. There is flowing ossification along the anterolateral aspect of 9contiguous lower thoracic vertebral bodies, with preservation of disk height consistent with diffuse idiopathic skeletal hyperostosis ( DISH). The paravertebral soft tissues are unremarkable. IMPRESSION: 1. Findings consistent with diffuse idiopathic skeletal hyperostosis. 2. Otherwise unremarkable images of the thoracic spine. RPTAT: QQ .Nitesh Bess MD, MD Date Time Electronically viewed and signed by .Nitesh Bess MD, on 10/09/2016 21:40 .R/
--- NOTE | 2016-10-09 21:43 | RADRPT ---
PROCEDURE: XR Cervical Spine. CLINICAL INDICATION: Neck pain. TECHNIQUE: Two views. Frontal and lateral. The images were reviewed on a PACS workstation. COMPARISON: None. FINDINGS: There is normal stature and alignment of the vertebrae. There is no fracture. There is no lytic or blastic lesion. There are mild degenerative changes with hypertrophy of the facet joints at C3-4 and C5-6. The prevertebral soft tissues are normal. IMPRESSION: 1. Degenerative changes. 2. Otherwise unremarkable study. RPTAT: QQ .Nitesh Bess MD, MD Date Time Electronically viewed and signed by .Nitesh Bess MD, MD on 10/09/2016 21:43 .R/
[2016-10-10] MEDS: METHADONE 5 MG TAB PO SCH ×4 (00:30→18:28)
[2016-10-10] MEDS: CIPROFLOXACIN 0.3% 2.5 ML OPH BOTH EYES SCH ×3 (05:09→16:25)
[2016-10-10] MEDS: KETOROLAC 30 MG INJ IV SCH ×3 (05:09→18:28)
[2016-10-10] MEDS: BACLOFEN 10 MG TAB PO SCH (05:54)
[2016-10-10] MEDS: SOD CHLORIDE 0.45% 1,000 ML IV SCH ×2 (05:56→06:10)
[2016-10-10 07:57] VITALS: BP 113/58; RESP 18
[2016-10-10] MEDS ORDERED: POLYETHYLENE GLYCOL 17 GM PACKET PO SCH (09:00)
[2016-10-10] MEDS: FAMOTIDINE 20 MG TAB PO SCH (09:32)
[2016-10-10] MEDS: ASPIRIN (EC) 81 MG TAB PO SCH (09:32)
[2016-10-10] MEDS: HEPARIN 5,000 UNIT/0.5 ML SYG SC SCH (10:18)
--- NOTE | 2016-10-10 10:51 | CONS ---
DATE OF ADMISSION: 09/30/2016 DATE OF CONSULTATION: 10/10/2016 HISTORY OF PRESENT ILLNESS: This is an unfortunate 55-year-old gentleman who was found down in his motorhome, was brought in by paramedics, neurologically intact. He states that he just could not sta nd up, was found to have acute rhabdomyolysis and was admitted. He was rehydrated, creatinine stabil ized. He has been seen by nephrology consultation but I am asked to see him for severe unremitting a nd uncontrollable back pain. Patient states he has had a longstanding history of back pain which is increasing in severity over the last 1 year period of time. He has been seen by doctors at [facility] and other local facilities. He has been told he is a nonsurgical candidate, bu t he states he has never been told the diagnosis. He remembers having an MRI but he does not know a nything about the results of those MRI studies. He was referred to a long-term unit for physi christ therapy and was admitted to a physical therapy unit and then apparently was either signed out or was discharged from the unit. His pain has increased and this patient is confined to a chair or hi s scooter. States he essentially pulls himself by his arms and legs, back and forth while crawling in his motorhome. He occasionally has spasm of bilateral lower extremities. Pain is primarily bila teral leg first, secondary is bilateral thighs. Increased in severity with minimal movement, 10/10, no radiation to his abdomen. Denies nausea, vomiting associated with it. Describes the pain as an electric shock-type of discomfort and annoying type of pain not alleviated with current pain medica tions including morphine and [place]. There is no past medical history of substance abuse. MEDICATIONS: Please refer to reconciliation sheet. ALLERGIES: CODEINE. MAJOR MEDICAL PROBLEMS IN THE PAST: History of hypertension, coronary heart disease. MEDICATIONS: Please refer to reconciliation sheet. ALLERGIES: CODEINE. MAJOR MEDICAL PROBLEMS IN THE PAST: As described above. SOCIAL HISTORY: Nonsmoker, smokes on occasion. FAMILY HISTORY: Noncontributory. REVIEW OF SYSTEMS: A 12-point review of systems as above in history of present illness, otherwise u nremarkable. PHYSICAL EXAMINATION: GENERAL: Shows a well-nourished, well-developed gentleman who is moaning and groaning on examinatio n complaining of bilateral lower extremity pain. HEENT: He is normocephalic and atraumatic. Anicteric, acyanotic on examination. VITAL SIGNS: Blood pressure 113/58, pulse 67 and regular, respirations of 18, temperature of 97.8 d egrees, 97% saturation on room air. CHEST: Shows bilateral clear breath sounds throughout both lung cunningham. COR: S1, S2, without S3, S4, murmur, gallop, rub. Normal rate, normal rhythm on examination. EXTREMITIES: Examination of bilateral lower extremities he has no loss of hair bilateral lower extr emities. Range of motion limited secondary to pain. He has 1/5 bilateral lower extremity plantar r esponse and extensor hallucis tendon, 1/5 flexion, extension of his bilateral lower extremity, ankle s intact, inversion and eversion cannot do secondary to severe discomfort. He is unable to flex and extend his knees without extreme discomfort, unable to flex and extend, invert or luís his hips wi thout severe discomfort and therefore cannot participate in examination. Sensory is grossly intact bilaterally without clubbing, cyanosis or edema bilateral lower extremities. LABORATORIES: Have been reviewed. T-spine x-ray show evidence consistent with diffuse idiopathic s keletal hyperostosis, otherwise, unremarkable. C-spine degenerative changes, otherwise, unremarkabl e. L-spine degenerative changes throughout. No acute abnormalities. ASSESSMENT AND PLAN: This unfortunate 55-year-old gentleman who has lost his ability to ambulate se condary to severe bilateral lower extremity pain and bilateral upper extremity discomfort both arms, both legs, not from a vascular etiology. This gentleman has DISH disease and has probably sustaine d severe irreversible neurological motor dysfunction secondary to the above, as well as severe pain syndrome. At this time, he is not responding to current pain control medications. I will start him off at this time on Cymbalta, ketorolac, methadone and OxyIR. Hopefully, his pain would be better c ontrolled. I have also given him trazodone 50 mg at bedtime to get some sleep. I have emphasized t o him he does need to go into a rehab center to try and improve his ambulation. Prognosis is poor. Dictated By: JANEEN THOMPSON MD, LP/ANDREY Conf#: [id number] [facility]#: [id number]
--- NOTE | 2016-10-10 11:54 | DS ---
Date/Time of Note Date/Time of Note DATE: 10/10/16 TIME: 11:44 Discharge Summary Admission/Discharge Info Admit Date/Time Sep 30, 2016 at 20:05 Discharge Date/Time Final Diagnosis 1. Acute rhabdomyolysis, resolved 2. s/p fall - fall precautions and physical therapy 3. HTN essential, controlled 4. CAD + Prev [place], stable, follow up with PCP 5. Chronic back pain - PT 6. Morbid Obesity Patient Condition: Stable Hx of Present Illness 55 yo M BIBA, with a hx of HTN. He was recently in a custodial facility but he was refusing medicines and left AGAINST MEDICAL ADVICE. He is now living in a trailer by himself. The paramedics said the trailer was in bad condition and he was unable to ambulate in the trailer and was laying on the floor. The patient says that he fell out of bed last night and could not get up. He says "my legs have not been working for a while and I cannot walk". Hospital Course Patient was found of having rhabdomyolysis with CPK 4413. It is considered secondary to non ambulating and toxic screen on admission was positive for amphetamine. He was treated with IVF rehydration and physical therapy, CPK came down to 121 on 10/08/2016. His renal function has been normal. X-ray of cervical, thoracic, and lumbar spine did not show fracture or dislocation. Patient still feels weak that he will be transferred to SNF for physical therapy. Follow-up Plan PCP in 2 weeks CEDRICK REESE MD Oct 10, 2016 11:54
--- NOTE | 2016-10-10 12:42 | CONS ---
Date/Time of Note Date/Time of Note DATE: 10/10/16 TIME: 12:30 Assessment/Plan Assessment/Plan Chief Complaint/Hosp Course 55 year old male with chronic lower back pain, chronic LE spasticity, degenerative spine disease, diffuse idiopathic skeletal hyperostosis with generalized muscle spasms. He was recently initiated on Cymbalta, Toradol, Methadone, and Oxycodone IR. He is currently on Baclofen 10 mg q8h. If patient is willing may increase Baclofen to 20 mg q8h, max dose of recommended Baclofen is 80 gm daily (20 mg QID). He was recently started on multiple other medications, would wait atleast a few days before initiating Baclofen increase due to highly sedating effects of combination of all of these medications. d/c to SNF/ Rehab facility Problems: Consultation Date/Type/Reason Admit Date/Time Sep 30, 2016 at 20:05 Date of Consultation: Oct 10, 2016 Type of Consultation: Neurology Reason for Consultation generalized muscle spasm Hx of Present Illness 55 year old male admitted with acute rhabdomyolysis with chronic uncontrollable back spine (mid-thoracic and lumbar spine), chronic spasticity rehydrated with stabilized renal function. He has a history reported of previous laminectomy lumbar spine, reports increase in pain, was being considered for a possible revision surgery by an outside doctor. He describes a shock type sensation shooting through his chest/mid-thoracic region and also radiating down both legs , baseline has trouble ambulating and gets around in a motor chair, occasionally crawls, He denies any bowel or bladder incontinence. He is currently on Baclofen 10 mg q8h, reluctant to increase medication doses at this time because he reports they make him feel sick. Eyes: no complaints ENT: no complaints Respiratory: no complaints Cardiovascular: no complaints Gastrointestinal: no complaints Musculoskeletal: back pain, bone/joint pain, other (fall) Neurologic: No confusion, No dizziness, No focal-weakness, No headache, No seizure, No syncope Psychological: nl mood/affect, no complaints Social History Alcohol Use: occasionally Smoking Status: Current some day smoker Drug Use: none Exam/Review of Systems Vital Signs Vitals Vital Signs Date Time Temp Pulse Resp B/P Pulse Ox O2 Delivery O2 Flow Rate FiO2 10/10/16 07:57 97.8 67 18 113/58 97 Intake and Output 10/09/16 10/09/16 10/10/16 15:00 23:00 07:00 Intake Total 1000 ml 1440 ml 1240 ml Balance 1000 ml 1440 ml 1240 ml Exam awake and alert oriented x3 no aphasia, speech fluent exam limited by patient moaning in pain when light touch applied to his UE he screams in pain complaining of radiating chest pain sensation electric-shocks CN: ABNER, VFF, EOMI no nystagmus, no facial asymmetry palate upgoing uvula midline, scm/trap intact tongue is midline Motor: both arm strength 5/5, LE legs are crossed 1/5 contracted LE refusing complete motor exam Sensory: heightened sensation throughout reports pain everywhere Results Result Diagram: 10/08/16 0950 10/08/16 0950 Medications Medications Current Medications Sodium Chloride (1/2 NS) 1,000 ml @ 75 mls/hr [id number] IV Last administered on 10/10/16 05:56; Admin Dose 75 MLS/HR; Start 09/30/16 at 22:00 Senna/Docusate Sodium (Senokot-S) 2 tab QHS PO Last administered on 10/09/16 21:01; Admin Dose 2 TAB; Start 10/01/16 at 21:00 Famotidine (Pepcid) 20 mg BID PO Last administered on 10/10/16 09:32; Admin Dose 20 MG; Start 10/01/16 at 09:00 Ondansetron HCl (Zofran Inj) 4 mg Q6H PRN IV NAUSEA AND/OR VOMITING Last administered on 10/08/16 15:13; Admin Dose 4 MG; Start 09/30/16 at 22:00 Acetaminophen (Tylenol Tab) 650 mg Q6H PRN PO PAIN AND OR ELEVATED TEMP Last administered on 10/01/16 18:12; Admin Dose 650 MG; Start 10/01/16 at 11:00 Bisacodyl (Dulcolax) 10 mg DAILY PRN PO CONSTIPATION Last administered on 13:03; Admin Dose 10 MG; Start 10/01/16 at 12:30 Heparin Sodium (Porcine) (Heparin (5000 Units/0.5 ml)) 5,000 unit BID SC Last administered on 10/10/16 10:18; Admin Dose 5,000 UNIT; Start 10/01/16 at 21:00 Aspirin (Halfprin) 81 mg DAILY PO Last administered on 10/10/16 09:32; Admin Dose 81 MG; Start 10/06/16 at 14:00 Carvedilol (Coreg) 3.125 mg BID PO Last administered on 10/10/16 09:32; Admin Dose 3.125 MG; Start 10/06/16 at 14:00 Ciprofloxacin HCl (Ciloxan 0.3% Oph) 1 drop Q6H BOTH EYES Last administered on 10/10/16 10:53; Admin Dose 1 DROP; Start 10/07/16 at 16:30; Stop 10/12/16 at 16: 20 Baclofen (Lioresal) 10 mg Q8 PO Last administered on 10/10/16 05:54; Admin Dose 10 MG; Start 10/08/16 at 15:30 Methadone HCl (Methadone) 5 mg Q6 PO Last administered on 10/10/16 05:54; Admin Dose 5 MG; Start 10/09/16 at 18:00 Oxycodone HCl (Roxicodone) 5 mg Q3H PRN PO PAIN Last administered on 10/10/16 02:54; Admin Dose 5 MG; Start 10/09/16 at 16:30 Polyethylene Glycol (Miralax) 17 gm DAILY PO Last administered on 10/10/16 09: 32; Admin Dose 17 GM; Start 10/10/16 at 09:00 Trazodone HCl (Desyrel) 50 mg HS PO Last administered on 10/09/16 21:02; Admin Dose 50 MG; Start 10/09/16 at 21:00 Duloxetine HCl (Cymbalta) 30 mg HS PO Last administered on 10/09/16 21:02; Admin Dose 30 MG; Start 10/09/16 at 21:00 Ketorolac Tromethamine (Toradol) 30 mg Q6H IV Last administered on 10/10/16 10 :50; Admin Dose 30 MG; Start 10/09/16 at 16:30; Stop 10/12/16 at 16:29 MURRAY HICKS MD Oct 10, 2016 12:41
[2016-10-10] MEDS ORDERED: ACET325T33 PO (12:54)
[2016-10-10] MEDS ORDERED: TRAZ50TA18 PO (12:54)
[2016-10-10] MEDS ORDERED: DULO30CA45 PO (12:54)
[2016-10-10] MEDS ORDERED: POLY17PO6 PO (12:54)
[2016-10-10] MEDS ORDERED: METH-417 PO (12:54)
[2016-10-10] MEDS ORDERED: BISA5TAB6 PO (12:54)
[2016-10-10] MEDS ORDERED: ASPI-664 PO (12:54)
[2016-10-10] MEDS ORDERED: CIPR2.5D11 BOTH EYES (12:54)
[2016-10-10] MEDS ORDERED: CARV3.1260 PO (12:54)
[2016-10-10] MEDS ORDERED: HEP5KI SC (12:54)
[2016-10-10] MEDS ORDERED: BACL10TA PO (12:54)
[2016-10-10] MEDS ORDERED: FAMO20TA18 PO (12:54)
[2016-10-10] MEDS ORDERED: BACLOFEN 10 MG TAB PO SCH (14:00)
[2016-10-10 19:33] VITALS: BP 143/79; RESP 18
[2016-10-10 19:43] VITALS: BP 130/60; RESP 18
== END 2016-10-10 20:15 | DRG 558 ==
LOC: E/R 18:29 → MS1 20:05 → MS2 10-04 22:50
PROVIDERS: ADMIT Family Medicine; ATTEND Family Medicine
DX: M62.82 Rhabdomyolysis (principal); E87.0 Hyperosmolality and hypernatremia; I25.10 Atherosclerotic heart disease of native coronary artery without angina pectoris; I25.2 Old myocardial infarction; G89.29 Other chronic pain; M54.9 Dorsalgia, unspecified; E66.01 Morbid (severe) obesity due to excess calories; Z68.29 Body mass index [BMI] 29.0-29.9, adult; M48.10 Ankylosing hyperostosis [Forestier], site unspecified; M48.8X9 Other specified spondylopathies, site unspecified; Z98.890 Other specified postprocedural states; Z72.0 Tobacco use
CPT/HCPCS: 36415; 70450; 71010; 72020; 74176; 80048; 80053; 80061; 80307; 81003; 82550; 82553; 83605; 83735; 84443; 84484; 85025; 85610; 85730; 87040; 87081; 87086; 90686; 93306; 96365; 96366; 96375; 97110; 97163; 97530; J1940; J1885; J2060; J2270; J2405; J3370; J7030